=== PATIENT | male | born 1965 | race Caucasian/White ===

== ENCOUNTER 2024-05-19 21:59 | Emergency (ER) | payer BC, SELFPAY ==
[2024-05-19 22:00] VITALS: PULSE 68; RESP 16; TEMP 36.4; O2SAT 99; BMI 22.6
--- OUTSIDE RECORDS SUMMARY | 2024-05-19 22:01 | XMS_ITS | Clinical Summary ---
Author Organization [facility] Address [address] [place] [address] Care Team Providers Care Marketing Associate Name Role Phone Charles Jimenez MD Primary Care Provider Allergies Active Allergy Reactions Criticality Noted Date Comments Tamsulosin *Unknown - Pt Doesn't Remember 03/19 Medications rosuvastatin (CRESTOR) 40 mg tabletIndicatio ns:Hyperlipidem ia, mixed Take 1 Tablet (40 mg) by mouth at bedtime. 90 Tablet 3 03/25/2023 Active pramipexole (MIRAPEX) 0.125 mg tabletIndicatio ns:Restless leg syndrome TAKE 2-3 TABLETS (0.25-0.375 MG) BY MOUTH AT BEDTIME. 270 Tablet 1 08/25/2023 Active Active Problems Problem Noted Date Diagnosed Date Routine adult health maintenance 05/25/2023 Overview (05/25/2023): Colonoscopy, 05/22, recheck 6 months. Hyperlipidemia, mixed 03/19/2023 Smoking 03/19/2023 Lumbar disc disease, L5-S1 fusion, 202103/19/19 Restless leg syndrome 03/19/2023 Immunizations Immunization Administration Dates Next Due Hepatitis A (Adult) 08/15/2013 Hepatitis B (Adult) 05/26/2022,08/15/2013 Influenza Virus, Unspecified 12/01/2012,12/19/19 10 Influenza, IIV3 (Age >=3 years) 11/24/2011 Influenza, IIV4 12/10/2017 MMR 05/26/2022 Measles 07/13/1978 Pneumococcal Poly,23-Valent (Pneumovax) 08/16/19 14 Tdap 08/15/2013 Typhoid (injectable) 05/26/2022 Typhoid Parenteral,Killed 08/15/2013 Zoster (Shingrix-RZV, recombinant) 04/14/2019, Social History Tobacco Use Types Packs/Day Years Used Date Smoking Tobacco: Every Day Cigarettes 0.5 43.2 Started: 03/01/1981 Smokeless Tobacco: Never Tobacco Cessation:Ready to Q uit: Not Asked; Counseling Given: Not Answered Alcohol Use Standard Drinks/Week Comments Yes 0 (1 standard drink = 0.6 oz pur e alcohol) Very Rare PHQ-2 Answer Date Recorded PHQ-2 TOTAL SCORE 0 03/25/2023 Social Connections Answer Date Recorded Frequency of Communication with Friends and Fami ly Not on file 03/25/2023 Sex and Gender Information Value Date Recorded Sex Assigned at Not on file Legal Sex Male 5:45 AM FORKLIFT OPERATOR Gender Identity Not on file Sexual Orientation Not on file Obstetrics History Last Filed Vital Signs Vital Sign Reading Time Taken Comments Blood Pressure 138/74 03/25/2023 9:26 AM FORKLIFT OPERATOR Pulse 84 03/25/2023 9:26 AM FORKLIFT OPERATOR Temperature - - Respiratory Rate - - Oxygen Saturation - - Inhaled Oxygen Concentration - - Weight 65 kg (143 lb 3.2 oz) 03/25/2023 9:26 AM FORKLIFT OPERATOR Height 165.1 cm (5' 5) 03/25/2023 9:26 AM FORKLIFT OPERATOR Body Mass Index 23.83 03/25/2023 9:26 AM FORKLIFT OPERATOR Plan of Treatment Health Maintenance Due Date Last Done Comments HIV for age 15-65 1981 Hepatitis C screening for ag e 18-79 1984 Pneumococcal series for age 50+ (2 of 2 - PCV) 08/15/2014 08/15/[address] (for lung CA) ag e 50-80 2016 Tetanus booster 2023 08/15/2013 COVID-19 vaccine series ( - season) 2023 02/04/2021, 06/11/2020, 05/21/2020 Influenza Vaccine (#1) 2023 8, 12/01/2012, 11/24/2011, Additional history exists BMI (ht and wt on same day) for age 18+ 03/25/2024 03/25/2023 Depression screening for age 12+ 03/25/2024 03/25/2023, 03/25/2023, 03/25/2023 Lipids for age 45-75 03/25/2028 03/25/2023 Colonoscopy through age 75 05/19/2033 05/20/2023 Tdap Completed 08/15/2013 Zoster (shingles) series for age 50+ Completed 04/14/2019, 07/12/2017 Procedures Procedure Name Priority Date/Time Associated Diagnosis Comments SCAN-COLONOSCOPY 05/20/2023 10:0 0 AM CDT LIPID PANEL Routine 03/25/2023 10:03 AM FORKLIFT OPERATOR Hyperlipidemia, mixed from Last 3 Months or Most Recently Relevant to Health Maintenance Results * SCAN-COLONOSCOPY (05/20/2023 10:00 AM CDT) Narrative Procedure Note Maria GuadalupeBeto Cantu MD - 05/20/2023 9:16 AM CDT [facility] [address] [place] [address], [address], [place] [id number] Patient Name: Morgan Rodriguez Gender: Male Exam Date: 05/20/2023 Visit Number: [id number] Age: 57 Years Date of : 1965 Attending MD: Beto Royal MD Medical Record#: [id number] Procedure: Colonoscopy Indications: Colorectal cancer screening Referring MD: Charles Jimenez MD Primary MD: Charles Jimenez MD Medications: Admitting Medications: 0.9% Normal Saline at TKO Intra Procedure Medications: Patient received monitored anesthesia care. Admitting Medications: 0.9% Normal Saline at TKO Intra Procedure Medications: Patient received monitored anesthesia care. Complications: No immediate complications Procedure: An examination of the heart and lungs was performed and found to be withinacceptable limits. . The patient was therefore deemed a reasonablecandidate for endoscopy and sedation. The risks and benefits of the procedure were explained to the patient.After obtaining informed consent, the patient received monitoredanesthesia care and I passed the scope without difficulty via the rectum to the cecum. The appendiceal orificeand ic valve were identified. The scope was retroflexed during theexamination The quality of the prep was excellent (Miralax/Gatorade/2tablets Bisacodyl/Magnesium Citrate). This was a complete examination throughout the entire colon. Findings: Polyp location: ascending colon. Quantity: 2. Size: 3-4 mm. Polypshape: sessile. Maneuver: polypectomy was performed with a cold snare. Removal: complete. Retrieval: complete. Bleeding: none. Polyp location: hepatic flexure. Quantity: 1. Size: 11-15 mm. Polypshape: sessile. Maneuver: piecemeal polypectomy was performed with a cold snare andcold biopsy forceps. Removal: complete. Retrieval: complete. Bleeding: none. Polyp location: sigmoid. Quantity: 1. Size: 4 mm. Polyp shape:sessile. Maneuver: polypectomy was performed with a cold snare. Removal: complete. Retrieval: complete. Bleeding: none. Polyp location: rectum. Quantity: 1. Size: 4 mm. Polyp shape: sessile. Maneuver: polypectomy was performed with a cold snare. Removal: complete. Retrieval: complete. Bleeding: none. Polyp location: transverse colon. Quantity: 4. Size: 4-6mm. Polypshape: sessile. Maneuver: polypectomy was performed with a cold snare. Removal: complete. Retrieval: complete. Bleeding: none. Tattoo was placed 5cm distal to hepatic flexure on the opposite wall. Remainder of the exam is normal. Impression: Colorectal polyps impression comments: You will need to come back in 6 months to makesure the whole hepatic flexure polyp was removed as I did remove it inpieces due to the size. Preliminary Plan: Repeat colonoscopy in 6 months for colon cancer surveillance Pathology Results: A: COLON, ASCENDING, POLYPS: 1. Tubular adenomas (2) 2. Negative for high grade dysplasia 3. Per the colonoscopy report: a. Polyp sizes: 3 mm - 4 mm b. Resection: Complete c. Retrieval: Complete B: COLON, HEPATIC FLEXURE, POLYP: 1. Tubular adenoma which is an advanced adenoma due to size (seecomment) 2. Negative for high grade dysplasia and invasive malignancy 3. Per the colonoscopy report: a. Polyp size: 11-15 mm b. Resection: Complete c. Retrieval: Complete C: COLON, TRANSVERSE, POLYPS: 1. Tubular adenomas (4) 2. Negative for high grade dysplasia 3. Per the colonoscopy report: a. Polyp sizes: 4 mm - 6 mm b. Resection: Complete c. Retrieval: Complete D: COLON, SIGMOID, POLYP: 1. Tubular adenoma 2. Negative for high grade dysplasia 3. Per the colonoscopy report: a. Polyp size: 4 mm b. Resection: Complete c. Retrieval: Complete E: RECTUM, POLYP: 1. Hyperplastic polyp COMMENTS B. Advanced adenoma of the colorectum is defined by the [place] [employer] (ACG) as an adenoma that is 1 cm or more in size,contains an appreciable villous component, or has high grade dysplasia(Zackery JH; Polyp Guideline: Diagnosis, Treatment, and Surveillance forPatients with Colorectal Polyps. Am J Goshcyvooadlh4405;95(11):3633-0588). This polyp qualifies as such. Patients withadvanced adenomas are at increased risk for synchronous and metachronousadditional advanced adenomas. Appropriate follow-up is suggested. MICROSCOPIC A: Performed B: Performed C: Performed D: Performed E: Performed Electronically signed by: Guillermo Levi [place] [address] Orders Instruction(s)/Education: Instruction/Education Timeframe Assessment Colon Cancer Prevention K63.5 Colon Polyps K63.5 Final Plan: Repeat colonoscopy in 6 months for Assess polypectomy site. We will attempt to contact you at appropriate intervals via U.S. mail. Wemay not be able to find you or contact you at that time, therefore youshould know that the responsibility for following our recommendation restswith you. If you don't hear from us at the time your procedure is due,please contact our office to schedule an appointment. If your contactinformation should change, please contact our office so that we can updateyour record. _Electronically signed by: Beto Royal MD 05/20/2023 cc: Charles Jimenez MD cc: Charles Jimenez MD us Beto Lerma MD OTHER Final Resu lt * (ABNORMAL) LIPID PANEL (03/25/2023 10:03 AM FORKLIFT OPERATOR) [facility] CHOLESTEROL,TOTAL 272(H) 100 - 199 mg/dL 03/25/2023 2:22 PM FORKLIFT OPERATOR [facility] Comment: Cholesterol, Total Reference Ranges Desirable <200 mg/dL Borderline 200-239 mg/dL High >=240 mg/dL TRIGLYCERIDES 149 <150 mg/dL 03/25/2023 2:22 PM FORKLIFT OPERATOR [facility] HDL CHOLESTEROL 51 >40 mg/dL 2:22 PM FORKLIFT OPERATOR [facility] NON-HDL CHOLESTEROL 221(H) <145 mg/dl 03/25/2023 2:22 PM FORKLIFT OPERATOR [facility] CHOL/HDL RATIO 5.33(H) <4.50 03/25/2023 2:22 PM FORKLIFT OPERATOR [facility] LDL CHOLESTEROL 191(H) <=130 mg/dL 03/25/2023 2:22 PM FORKLIFT OPERATOR [facility] VLDL CHOLESTEROL 30 <=30 mg/dL 03/25/2023 2:22 PM FORKLIFT OPERATOR [facility] PROVIDER ORDERED STATUS RANDOM 03/25/2023 2:22 PM FORKLIFT OPERATOR [facility] Blood BLOOD SPECIMEN / Unknown Venipuncture / Unknown 03/25/2023 10:03 AM FORKLIFT OPERATOR 03/25/2023 10:03 AM FORKLIFT OPERATOR us Charles Jimenez MD CHEMISTRY Final Result [facility] [address] [place] [address], [place] from Last 3 Months or Most Recently Relevant to Health Maintenance Insurance [facility] [employer] Care Teams Marketing Associate Relationship Specialty [place] [address] [place] [address] PCP - General Family Practice 03/25/23
--- OUTSIDE RECORDS SUMMARY | 2024-05-19 22:01 | XMS_ITS | Clinical Summary ---
Author Organization [facility] Address [address] [place] [address] Care Team Providers Care Leather Stripping Machine Operator Name Role Phone Priya Cameron APRN, CNP Primary Care Provide r Allergies No known active allergies Medications pramipexole (MIRAPEX) 0.125 MG tablet Take 0.375 mg by mouth At Bedtime 09/16/2020 Active methocarbamol (ROBAXIN) 500 MG tabletIndicatio ns:S/P lumbar fusion Take 1 tablet (500 mg) by mouth 3 times daily as needed for muscle spasms 40 tablet 1 03/13/2021 Active neomycin-polymy peng-hydrocortis one (CORTISPORIN) 3.5-96089-8 otic suspensionIndic ations:Infectiv e otitis externa, left Place 3 drops Into the left ear 4 times daily 10 mL 08/02/2022 Active Active Problems Problem Noted Date Diagnosed Date Smoker 08/02/2022 S/P lumbar fusion 03/13/2021 Social History Tobacco Use Types Packs/Day Years Used Date Smoking Tobacco: Every Day Cigarettes 0.5 10 Smokeless Tobacco: Never Alcohol Use Standard Drinks/Week Comments Yes 0 (1 standard drink = 0.6 oz pur e alcohol) rare Adolescent Education Answer Date Record ed Getting School Help Needed Not on file 11/21 Sex and Gender Information Value Date Recorded Sex Assigned at Not on file Legal Sex Male 12:29 PM BOARD MIXER TENDER Gender Identity Not on file Sexual Orientation Not on file Last Filed Vital Signs Vital Sign Reading Time Taken Comments Blood Pressure 134/86 08/02/2022 10:52 AM CDT Pulse 64 08/02/2022 10:52 AM CDT Temperature 36.5 C (97.7 F) 08/02/2022 10:52 AM CDT Respiratory Rate 18 08/02/2022 10:52 AM CDT Oxygen Saturation 99% 08/02/2022 10:52 AM CDT Inhaled Oxygen Concentration - - Weight 66.4 kg (146 lb 4.8 oz) 03/13/2021 11:14 AM BOARD MIXER TENDER Height 167.6 cm (5' 6) 03/13/2021 11:14 AM BOARD MIXER TENDER Body Mass Index 23.61 03/13/2021 11:14 AM BOARD MIXER TENDER Plan of Treatment Health Maintenance Due Date Last Done Comments ADVANCE CARE PLANNING 1965 ANNUAL REVIEW OF HM ORDERS 1965 CT COLONOGRAPHY 1965 FIT 1965 FLEX SIG 1965 COLONOSCOPY 1976 HIV SCREENING 1981 HEPATITIS C SCREENING 1984 LIPID 2006 Pneumococcal Vaccine: 50+ Years (2 of 2 - PCV) 08/15/2014 08/15/2013 LUNG CANCER SCREENING 2016 YEARLY PREVENTIVE VISIT 07/12/2018 07/12/2017 HEPATITIS B IMMUNIZATION (3 of 3 - 19+ 3-dose series) 07/21/2022 05/26/2022, 08/15/2013, 08/15/2013 DTAP/TDAP/TD IMMUNIZATION (2 - Td or Tdap) 2023 08/15/2013, 10/02/2002 COVID-19 Vaccine ( season) 2023 02/04/2021, 06/11/2020, 05/21/2020 INFLUENZA VACCINE (#1) 2023 8, 12/01/2012, 11/24/2011, Additional history exists COLORECTAL CANCER SCREENING 01/29/2024 sDNA (Cologuard) 01/29/2024 01/28/2021 PHQ-2 (once per calendar year) 2024 DIABETES SCREENING 03/14/2024 03/14/2021, 0 03/14/2021, 03/14/2021, Additional history exists RSV VACCINE (1 - 1-dose 75+ series) 2041 ZOSTER IMMUNIZATION Completed 04/14/2019, 8 HPV IMMUNIZATION Aged Out No longer e ligible based on patient's age to complete this topic MENINGITIS IMMUNIZATION Aged Out No l onger eligible based on patient's age to complete this topic RSV MONOCLONAL ANTIBODY Aged Out No l onger eligible based on patient's age to complete this topic Medical Devices Implanted Type Area Youth Director Device Identifier Shelf Expiration Date Model / Serial / Lot Carriere Dbf With Delivery Tubes Implanted:Qty: 1 on 03/13/2021 by Jose Luis Coto MD at [facility] N/A: Spine Lumbar [employer] 07/12/2022 [id number] / [id number] / Pete Dbf Inject Implanted:Qty: 1 on 03/13/2021 by Jose Luis Coto MD at [facility] N/A: Spine Lumbar [employer] 01/30/2023 [id number] / [id number] / Interbody Cage, Pl, Short Size 7mm Implanted:Qty: 1 on 03/13/2021 by Jose Luis Coto MD at [facility] N/A: Spine Lumbar 01/15/2029 [id number] / / [id number] 7.5 X 40 Voyager Ats Screw Implanted:Qty: 2 on 03/13/2021 by Jose Luis Coto MD at [facility] N/A: Spine Lumbar [employer] [id number] / / [id number] 7.5 X 35 Voyager Ats Screw Implanted:Qty: 2 on 03/13/2021 by Jose Luis Coto MD at [facility] N/A: Spine Lumbar [employer] [id number] / / [id number] Voyager Set Screw Implanted:Qty: 4 on 03/13/2021 by Jose Luis Coto MD at [facility] N/A: Spine Lumbar [employer] [id number] / / [id number] 35mm Capped Joel Implanted:Qty: 1 on 03/13/2021 by Jose Luis Coto MD at [facility] N/A: Spine Lumbar [employer] [id number] / / [id number] Procedures Procedure Name Priority Date/Time Associated Diagnosis Comments GLUCOSE BY METER Routine 03/14/2021 1:48 AM BOARD MIXER TENDER from Last 3 Months or Most Recently Relevant to Health Maintenance Results * (ABNORMAL) Glucose by meter (03/14/2021 1:48 AM BOARD MIXER TENDER) GLUCOSE BY METER POCT 126(H) 70 - 99 mg/dL 03/14/2021 1:55 AM BOARD MIXER TENDER LABORATORY POC Comment:Dr/RN Notified Blood BLOOD SPECIMEN / Unknown 03/14/2021 1:48 AM BOARD MIXER TENDER 03/14/2021 1:55 AM BOARD MIXER TENDER Jose Luis Coto MD LAB - BEAKER POCT Fi nal Result LABORATORY POC [facility] [address] [facility] (1st floor, no room number) [place] [address], [facility] [phone] from Last 3 Months or Most Recently Relevant to Health Maintenance Insurance BLUE PLUS Advance Directives For more information, please contact: [phone] * Full Code (Latest Code Status on File) Date Activated Date Inactivated Comments 03/13/2021 7:29 PM 03/14/2021 7:13 PM All basic an d advanced life-sustaining interventions are performed as appropriate Question Answer Comments Code status determined by: Discussion with patie nt/ legal decision maker Care Teams Leather Stripping Machine Operator Relationship Specialty Start Date End Date Priya Cameron, LUCIO APPLICATION SUPPORT ADMINISTRATOR [address] [address] PCP - General Internal Medicine 03/03/21
--- NOTE | 2024-05-19 22:11 | CRLHL7_ITS ---
For Patients: As a result of the Century Cures Act, medical imaging exams and procedure reports are released immediately into your electronic medical record. You may view this report before your referring provider. If you have questions, please contact your health care provider. INDICATION: Left lower quadrant abdominal pain. TECHNIQUE: CT abdomen and pelvis without contrast. COMPARISON: None. FINDINGS: Lower chest: Unremarkable. Liver: Unremarkable. Gallbladder and bile ducts: Unremarkable. Pancreas: Unremarkable. Spleen: Unremarkable. Adrenal glands: Unremarkable. Kidneys: Mild left-sided hydronephrosis and hydroureter leading to a 3 mm left distal ureteral calculus (series 2, image 107). Mild left-sided perinephric stranding is evident. Additional nonobstructing bilateral renal calculi are noted measuring 2 mm. No right-sided hydronephrosis or hydroureter. GI tract: No bowel obstruction. Scattered submucosal fat deposition, likely reflecting sequelae of chronic inflammatory process. Scattered colonic diverticulosis without acute diverticulitis. No CT evidence of acute appendicitis. Vasculature: Atherosclerotic vascular calcifications. No abdominal aortic aneurysm. Lymph nodes: No suspicious lymphadenopathy. Peritoneum/Abdominal Wall: No ascites or pneumoperitoneum. No acute abdominal wall abnormality. Pelvis: Normal bladder. Unremarkable prostate and seminal vesicles. Bones: No acute abnormality. Multilevel chronic appearing superior endplate vertebral body deformities. Operative changes of L5-S1 posterior and interbody arthrodesis. IMPRESSION: 1. Left distal ureteral calculus measuring 3 mm with mild associated hydroureteronephrosis. 2. Additional nonobstructing bilateral renal calculi measuring up to 2 mm. 3. Scattered colonic diverticulosis without acute diverticulitis. Please note that all CT scans at this facility use dose modulation, iterative reconstruction, and/or weight-based dosing when appropriate to reduce radiation dose to as low as reasonably achievable. Dictated by Iron Rosenbaum MD @ 05/19/2024 10:50:08 PM (Electronically Signed)
--- NOTE | 2024-05-19 22:14 | ED_ITS ---
HPI - General Adult General Date Seen: 05/19/24 Chief complaint: Back Injury/Pain Stated complaint: Back pain, vomiting Time Seen by Provider: 05/19/24 22:05 History of Present Illness HPI narrative: Patient is a 58-year-old male with a history of back pain, status post spinal surgery few years ago and chronic pain since then, who presents with sudden onset of more severe left lower back pain and left lower quadrant pain. He does note that he often has pain in these areas related to his back surgery, but this feels different, feels more internal, he has the sense that this is related to a ?blockage. He did try a suppository for constipation without results. He noted diarrhea this morning, nonbloody. He has had a couple episodes of clear emesis tonight. He has not had fevers or urinary symptoms. Denies history of kidney stones. Does not have any other medical history per his report. We have no previous records. Does not appear to be on chronic pain management, and his says that he does have pain all the time but tonight is different. He does smoke, denies alcohol or drug use. Denies other abdominal surgeries. Related Data Previous Rx's ?Medication ?Instructions ?Recorded tamsulosin 0.4 mg capsule (Flomax) 0.4 mg PO DAILY #10 caps 05/19/24 Allergies Allergy/AdvReac Type Severity Reaction Status Date / Time No Known Drug Allergies Allergy Verified 05/19/24 22:05 Review of Systems Status of ROS: Reports: 10 or more systems reviewed and unremarkable except as noted in History and below [facility] Social History Smoking Status: Never smoker Do you use any of these nicotine containing products: None How often do you have a drink containing alcohol: never How often do you have six or more drinks on one occasion: Never AUDIT-C Alcohol total score: 0 Non-prescribed substance use: denies use service: No Exam Narrative: Exam Narrative: Vital signs reviewed In general, alert, nontoxic mid age male. He looks uncomfortable. Head: Normocephalic, atraumatic. Eyes: Sclera clear. Pupils equal and reactive. ENT: Mucous membranes moist. Neck: Supple without adenopathy. Heart: Regular rate and rhythm without murmur. Lungs: Clear. No increased work of breathing, crackles or wheezes. Abdomen: Abdomen is soft, nondistended. He has a little bit of left lower quadrant tenderness, no guarding rigidity or rebound tenderness. Extremities: Well perfused, pulses intact. No significant edema. Neurologic: Alert, conversant. Speech fluent, face symmetric. Moves all extremities equally. Skin: Warm, dry well perfused. Affect: Normal. Const: Vital Signs, click to edit/add: Vital Signs - 24 hr 05/19/24 22:00 Temperature 97.6 F Pulse Rate [Pulse Oximeter] 68 Respiratory Rate 16 Pulse Oximetry 99 Oxygen Delivery Me thod Room Air Course Course ED Course: Will place an IV, give some normal saline, Zofran, start with Toradol. I have ordered a noncontrast CT in lower evaluate for possible kidney stone, other diagnostic considerations would be bowel obstruction, diverticulitis, colitis, volvulus or other obstruction, incarcerated hernia,, among others. Routine labs pending. CBC notable for an elevated white blood cell count of 16, mild left shift with 77% neutrophils. Metabolic panel is pending, UA shows 0-2 red cells 0-[address] scan of the abdomen and pelvis by my review shows about a 3 mm stone in the distal left ureter with associated hydronephrosis. Radiology read pending at this time. I have ordered morphine for additional pain control. Radiology read agrees. Results discussed with patient. I prescribed Zofran as well as oxycodone for pain and nausea. Ibuprofen 400 mg 3 times daily recommended for baseline pain control. I also gave him Flomax. Discussed that this size stone would be expected to pass on its own over the next few days but if he feels that he does not pass it over the next week, would recommend Urology follow-up. Return any time for severe uncontrolled pain, fevers, chills, or other worsening. Vital Signs Vital signs: Initial Vital Signs Temperature 97.6 F 05/19/24 22:00 Temperature Source Temporal Artery Scan 05/19/24 22:00 Pulse Rate 68 05/19/24 22:00 Respiratory Rate 16 05/19/24 22:00 Pulse Oximetry 99 05/19/24 22:00 Oxygen Delivery Method Room Air 05/19/24 22:00 Vital Signs Temperature 97.6 F 05/19/24 22:00 Pulse Rate 68 05/19/24 22:00 Respiratory Rate 16 05/19/24 22:00 Pulse Oximetry 99 05/19/24 22:00 Oxygen Delivery Method Room Air 05/19/24 22:00 Temperature 98.1 F 05/19/24 23:04 Pulse Rate 68 05/19/24 23:04 Respiratory Rate 16 05/19/24 23:04 Blood Pressure 119/79 05/19/24 23:04 Pulse Oximetry 98 05/19/24 23:04 Oxygen Delivery Method Room Air 05/19/24 23:04 Medications Administered Medications: Discontinued Medications Generic Name Dose Route Start Last Admin Trade Name Freq PRN Reason Stop Dose Admin Sodium Chloride 1,000 mls @ 1,000 mls/hr 05/19/24 22:15 05/19/24 23:21 0.9 % Sodium Chloride 1000 Ml IV 05/19/24 23:14 Infused .Q1H ELLE Infusion Ceftriaxone Sodium 1 gm/ 100 mls @ 200 mls/hr 05/19/24 23:11 05/19/24 23:34 Sodium Chloride IVPB 05/19/24 23:12 Infused ONCE ONE Infusion Ketorolac Tromethamine 15 mg 05/19/24 22:11 05/19/24 22:25 Ketorolac 15 Mg/Ml Inj IVP 05/19/24 22:12 15 mg ONCE ONE Administration Morphine Sulfate 4 mg 05/19/24 22:46 05/19/24 22:51 Morphine 4 Mg/Ml Inj IVP 05/19/24 22:47 4 mg ONCE ONE Administration Ondansetron HCl 4 mg 05/19/24 22:11 05/19/24 22:25 Ondansetron Odt 4 Mg Tab PO 05/19/24 22:12 4 mg ONCE ONE Administration Medical Decision Making Lab Data Lab results reviewed: Yes I reviewed the patient's lab results Labs: Lab Results 05/19/24 Range/Units 22:15 WBC 15.94 H (4.50-11.00) K/uL RBC 5.31 (4.30-5.90) m/uL Hgb 16.7 (13.5-17.5) gm/dL Hct 48.9 (37.0-53.0) % MCV 92 (80-100) fL MCH 32 (26-34) pg MCHC 34 (32-36) gm/dL RDW Coeff of Disha 12.2 (11.5-15.5) % Plt Count 196 (140-440) K/uL Neut % (Auto) 77.0 H (42.0-72.0) % Lymph % (Auto) 12.5 L (20-44) % [place] % (Auto) 8.2 (0.0-11.0) % Eos % (Auto) 0.6 (0.0-7.0) % Baso % (Auto) 0.3 (0.0-3.0) % Neut # (Auto) 12.30 H (1.7-7.0) K/uL Lymph # (Auto) 2.00 (0.90-2.90) K/uL [place] # (Auto) 1.30 H (0.00-0.90) K/UL Eos # (Auto) 0.10 (0.00-0.50) K/uL Baso # (Auto) 0.00 (0.00-0.30) K/uL Abs Immat Gran (auto) 0.20 (0.00-0.30) K/uL Imm/Tot Granulo (auto) 1.4 % Sodium 140 (135-149) mmol/L Potassium 4.0 (3.6-5.1) mmol/L Chloride 104 (96-114) mmol/L Carbon Dioxide 23 (20-32) mmol/L Anion Gap 13 (7-15) mEq/L BUN 23 (7-30) mg/dL Creatinine 1.4 (0.5-1.5) mg/dL Estimated Creat Clear 52.29 Estimated GFR 59 ml/min Glucose 110 (60-115) mg/dL Calcium 9.4 (8.4-10.6) mg/dL C-Reactive Protein < 0.5 L (0.5-1.0) mg/dL Urine Color Yellow (Yellow) Urine Appearance Clear (Clear) Urine pH 5.5 (5.0-8.5) Ur Specific [place] >= 1.030 (1.000-1.030) Urine Protein 2+ A (Negative) Urine Glucose (UA) Negative (Negative) Urine Ketones 1+ A (Negative) Urine Blood Trace-lysed A (Negative) Urine Nitrite Negative (Negative) Urine Bilirubin 1+ A (Negative) Urine Urobilinogen 0.2 (0.2-1.0) Ur Leukocyte Esterase Negative (Negative) Urine RBC 0-2 (0-2) Urine WBC 0-2 (0-5) Ur Squamous Epith Cells None (None-Few) Amorphous Sediment Few A (None) Urine Bacteria None (None) Imaging Data CT scan - abdomen: Attestation: I have reviewed the pertinent imaging results. Radiologist's impression: [place] [address] Diagnostic Imaging Report Patient: Morgan Rodriguez MR#: [id number] : 1965 Acct:[id number] Loc: ED Service Date: 05/19/[address]: Ordering Physician: Leslie Dickson M.D. Date of Service: 05/19/24 Procedure(s): CT abdomen pelvis wo con Accession Number(s): [id number] cc: Leslie Dickson M.D.~ For Patients: As a result of the Cures Act, medical imaging exams and procedure reports are released immediately into your electronic medical record. You may view this report before your referring provider. If you have questions, please contact your health care provider. INDICATION: Left lower quadrant abdominal pain. TECHNIQUE: CT abdomen and pelvis without contrast. COMPARISON: None. FINDINGS: Lower chest: Unremarkable. Liver: Unremarkable. Gallbladder and bile ducts: Unremarkable. Pancreas: Unremarkable. Spleen: Unremarkable. Adrenal glands: Unremarkable. Kidneys: Mild left-sided hydronephrosis and hydroureter leading to a 3 mm left distal ureteral calculus (series 2, image 107). Mild left-sided perinephric stranding is evident. Additional nonobstructing bilateral renal calculi are noted measuring 2 mm. No right-sided hydronephrosis or hydroureter. GI tract: No bowel obstruction. Scattered submucosal fat deposition, likely reflecting sequelae of chronic inflammatory process. Scattered colonic diverticulosis without acute diverticulitis. No CT evidence of acute appendicitis. Vasculature: Atherosclerotic vascular calcifications. No abdominal aortic aneurysm. Lymph nodes: No suspicious lymphadenopathy. Peritoneum/Abdominal Wall: No ascites or pneumoperitoneum. No acute abdominal wall abnormality. Pelvis: Normal bladder. Unremarkable prostate and seminal vesicles. Bones: No acute abnormality. Multilevel chronic appearing superior endplate vertebral body deformities. Operative changes of L5-S1 posterior and interbody arthrodesis. IMPRESSION: 1. Left distal ureteral calculus measuring 3 mm with mild associated hydroureteronephrosis. 2. Additional nonobstructing bilateral renal calculi measuring up to 2 mm. 3. Scattered colonic diverticulosis without acute diverticulitis. Please note that all CT scans at this facility use dose modulation, iterative reconstruction, and/or weight-based dosing when appropriate to reduce radiation dose to as low as reasonably achievable. Dictated by Iron Rosenbaum MD @ 05/19/2024 10:50:08 PM Discharge Plan Discharge Clinical Impression: Calculus of distal left ureter Patient Disposition: Home, Self-Care Condition: Improved Instructions: How to Strain Your Urine (ED), Ureteral Stones (ED) Additional Instructions: You should push fluids over the next couple of days as this can help with pa ssage of kidney stones. Strain your urine. Your stone is 3 mm in size, and stones this size usually pass on their own within a few days to week. If after week you do not feel that you have passed the stone, I would recommend neurology follow-up. You can call [facility], if you need to follow- up. In the meantime, ibuprofen 400 mg 3 times daily with food as baseline pain control. Oxycodone as needed for uncontrolled pain. Zofran if needed for nausea or vomiting. Flomax may be helpful with passage of your stone. Return to the ER at any time for severe uncontrolled pain, fevers, chills, uncontrolled vomiting or other worsening. Prescriptions: New tamsulosin [Flomax] 0.4 mg capsule 0.4 mg PO DAILY Qty: 10 2RF Stand Alone Forms: [employer] Info Instructions
[2024-05-19] MEDS: 0.9 % SODIUM CHLORIDE 1000 ml 1,000 ML IV (22:24)
[2024-05-19] MEDS: KETOROLAC 15 MG/ML inj IVP (22:25)
[2024-05-19] MEDS: ONDANSETRON ODT 4 MG TAB PO (22:25)
[2024-05-19 22:30] LABS: Basophils Percent Auto 0.3 % (0.0-3.0); Eosinophils Percent Auto 0.6 % (0.0-7.0); Hematocrit 48.9 % (37.0-53.0); Hemoglobin* 16.7 gm/dL (13.5-17.5); Immature Granulocytes Pct Auto 1.4 %; Lymphocytes Percent Auto 12.5 % (20-44); Mean Corpuscular HGB Conc 34 gm/dL (32-36); Mean Corpuscular Hemoglobin 32 pg (26-34); Mean Corpuscular Volume 92 fL (80-100); Monocytes Percent Auto 8.2 % (0.0-11.0); Platelet Count* 196 K/uL (140-440); RDW Coefficient of Variation % 12.2 % (11.5-15.5); Red Blood Count 5.31 m/uL (4.30-5.90); White Blood Count* 15.94 K/uL (4.50-11.00)
[2024-05-19 22:31] LABS: Appearance Urine Clear (Clear); Bilirubin Urine 1+ (Negative); Blood Urine Trace-lysed (Negative); Color Urine Yellow (Yellow); Glucose Urine Negative (Negative); Ketones Urine 1+ (Negative); Leukocyte Esterase Urine Negative (Negative); Nitrite Urine Negative (Negative); Protein Urine 2+ (Negative); Specific Gravity Urine >= 1.030 (1.000-1.030); Urobilinogen Urine 0.2 (0.2-1.0); pH Urine 5.5 (5.0-8.5)
[2024-05-19 22:32] LABS: Slide Review Reflex No
[2024-05-19 22:43] LABS: Amorphous Sediment Urine Few; RBC Urine 0-2 (0-2); WBC Urine 0-2 (0-5)
[2024-05-19 22:51] LABS: Chloride* 104 mmol/L (96-114); Sodium* 140 mmol/L (135-149)
[2024-05-19] MEDS: MORPHINE 4 MG/ML INJ IVP (22:51)
[2024-05-19 22:55] LABS: Anion Gap 13 mEq/L (7-15); Blood Urea Nitrogen* 23 mg/dL (7-30); Calcium* 9.4 mg/dL (8.4-10.6); Carbon Dioxide* 23 mmol/L (20-32); Creatinine* 1.4 mg/dL (0.5-1.5); Est. Creatinine Clearance* 52.29; Estimated Glomerular Filt Rate 59 ml/min; Glucose* 110 mg/dL (60-115)
[2024-05-19 22:59] LABS: C Reactive Protein* < 0.5 mg/dL (0.5-1.0)
[2024-05-19 23:04] VITALS: BP 119/79; PULSE 68; RESP 16; TEMP 36.7; O2SAT 98
[2024-05-19] MEDS: cefTRIAXone 1 GM in 0.9 % SODIUM CHLORIDE Mini-bag 100 ML IVPB (23:16)
--- OUTSIDE RECORDS SUMMARY | 2024-05-19 23:18 | XMS_ITS | Clinical Summary ---
Author Organization [facility] Address [address] [place] [id number] Care Team Providers Care Placement Assistant Name Role Phone Charles Jimenez MD Primary [...] on file Legal Sex Male 5:45 AM NURSING EDUCATION SPECIALIST Gender Identity Not on file Sexual Orientation Not on file Obstetrics History Last Filed Vital Signs Vital Sign Reading Time Taken Comments Blood Pressure 138/74 03/25/2023 9:26 AM NURSING EDUCATION SPECIALIST Pulse 84 03/25/2023 9:26 AM NURSING EDUCATION SPECIALIST Temperature - - Respiratory Rate - - Oxygen Saturation - - Inhaled Oxygen Concentration - - Weight 65 kg (143 lb 3.2 oz) 03/25/2023 9:26 AM NURSING EDUCATION SPECIALIST Height 165.1 cm (5' 5) 03/25/2023 9:26 AM NURSING EDUCATION SPECIALIST Body Mass Index 23.83 03/25/2023 9:26 AM NURSING EDUCATION SPECIALIST Plan of Treatment Health Maintenance Due Date [...] CDT LIPID PANEL Routine 03/25/2023 10:03 AM NURSING EDUCATION SPECIALIST Hyperlipidemia, mixed from Last 3 Months or Most Recently Relevant to Health Maintenance Results * SCAN-COLONOSCOPY (05/20/2023 10:00 AM CDT) Narrative Procedure Note Maria GuadalupeBeto Cantu MD - 05/20/2023 9:16 AM CDT [facility] [address] [place] [address], [address], [place] [id number] Patient Name: Morgan Rodriguez Gender: Male Exam Date: 05/20/2023 Visit Number: [id number] Age: 57 Years Date of : 1965 Attending MD: Beto Royal MD Medical Record#: [id number] Procedure: Colonoscopy Indications: Colorectal cancer screening Referring [...] of the colorectum is defined by the [employer] (ACG) as an adenoma that is 1 cm or more in size,contains an appreciable villous component, or has high grade dysplasia(Zackery JH; Polyp Guideline: Diagnosis, Treatment, and Surveillance forPatients with Colorectal Polyps. Am J [id number];95(11):2404-3647). This polyp qualifies as such. Patients withadvanced adenomas are at increased risk for synchronous and metachronousadditional advanced adenomas. Appropriate follow-up is suggested. MICROSCOPIC A: Performed B: Performed C: Performed D: Performed E: Performed Electronically signed by: Guillermo Levi [place] [address] Orders Instruction(s)/Education: Instruction/Education Timeframe Assessment Colon Cancer [...] * (ABNORMAL) LIPID PANEL (03/25/2023 10:03 AM NURSING EDUCATION SPECIALIST) [facility] CHOLESTEROL,TOTAL 272(H) 100 - 199 mg/dL 03/25/2023 2:22 PM NURSING EDUCATION SPECIALIST [facility] Comment: Cholesterol, Total Reference Ranges Desirable <200 mg/dL Borderline 200-239 mg/dL High >=240 mg/dL TRIGLYCERIDES 149 <150 mg/dL 03/25/2023 2:22 PM NURSING EDUCATION SPECIALIST [facility] HDL CHOLESTEROL 51 >40 mg/dL 2:22 PM NURSING EDUCATION SPECIALIST [facility] NON-HDL CHOLESTEROL 221(H) <145 mg/dl 03/25/2023 2:22 PM NURSING EDUCATION SPECIALIST [facility] CHOL/HDL RATIO 5.33(H) <4.50 03/25/2023 2:22 PM NURSING EDUCATION SPECIALIST [facility] LDL CHOLESTEROL 191(H) <=130 mg/dL 03/25/2023 2:22 PM NURSING EDUCATION SPECIALIST [facility] VLDL CHOLESTEROL 30 <=30 mg/dL 03/25/2023 2:22 PM NURSING EDUCATION SPECIALIST [facility] PROVIDER ORDERED STATUS RANDOM 03/25/2023 2:22 PM NURSING EDUCATION SPECIALIST [facility] Blood BLOOD SPECIMEN / Unknown Venipuncture / Unknown 03/25/2023 10:03 AM NURSING EDUCATION SPECIALIST 03/25/2023 10:03 AM NURSING EDUCATION SPECIALIST us Charles Jimenez MD CHEMISTRY Final Result [facility] [address] [place] [address], [place] from Last 3 Months or Most Recently Relevant to Health Maintenance Insurance [facility] [employer] Care Teams Placement Assistant Relationship Specialty [place] [address] [place] [address] PCP - General Family Practice 03/25/23
--- OUTSIDE RECORDS SUMMARY | 2024-05-19 23:19 | XMS_ITS | Clinical Summary ---
Author Organization [facility] Address [address] [place] [address] Care Team Providers Care Physician Coder Name Role Phone Priya Cameron APRN, CNP Primary Care Provide r Allergies No known active allergies Medications pramipexole (MIRAPEX) 0.125 MG tablet Take 0.375 mg by mouth At Bedtime 09/16/2020 Active methocarbamol (ROBAXIN) 500 MG tabletIndicatio ns:S/P lumbar fusion Take 1 tablet (500 mg) by mouth 3 times daily as needed for muscle spasms 40 tablet 1 03/13/2021 Active neomycin-polymy peng-hydrocortis one (CORTISPORIN) 3.5-70441-0 otic suspensionIndic ations:Infectiv e otitis externa, left [...] on file Legal Sex Male 12:29 PM WIRE INSERTER Gender Identity Not on file Sexual Orientation [...] (146 lb 4.8 oz) 03/13/2021 11:14 AM WIRE INSERTER Height 167.6 cm (5' 6) 03/13/2021 11:14 AM WIRE INSERTER Body Mass Index 23.61 03/13/2021 11:14 AM WIRE INSERTER Plan of Treatment Health Maintenance Due Date [...] this topic Medical Devices Implanted Type Area Outreach Specialist Device Identifier Shelf Expiration Date Model / Serial / Lot [place] Dbf With Delivery Tubes Implanted:Qty: 1 on 03/13/2021 by Jose Luis Coto MD at [facility] N/A: Spine Lumbar [employer] 07/12/2022 [id number] / [id number] / Pete Dbf Inject Implanted:Qty: 1 on 03/13/2021 by Jose Luis Coto MD at [facility] N/A: Spine Lumbar [employer] 01/30/2023 [id number] / [id number] / Interbody Cage, Pl, Short Size 7mm Implanted:Qty: 1 on 03/13/2021 by Jose Luis Coto MD at [facility] N/A: Spine Lumbar 01/15/2029 [id number] / / [id number] 7.5 X 40 Voyager Ats Screw Implanted:Qty: 2 on 03/13/2021 by Jose Luis Coto MD at [facility] N/A: Spine Lumbar [employer] [id number] / / [id number] 7.5 X 35 Voyager Ats Screw Implanted:Qty: 2 on 03/13/2021 by Jose Luis Coto MD at [facility] N/A: Spine Lumbar [employer] [id number] / / [id number] Voyager Set Screw Implanted:Qty: 4 on 03/13/2021 by Jose Luis Coto MD at [facility] N/A: Spine Lumbar [employer] [id number] / / [id number] 35mm Capped Joel Implanted:Qty: 1 on 03/13/2021 by Jose Luis Coto MD at [facility] N/A: Spine Lumbar [employer] [id number] / / [id number] Procedures Procedure Name Priority Date/Time Associated Diagnosis Comments GLUCOSE BY METER Routine 03/14/2021 1:48 AM WIRE INSERTER from Last 3 Months or Most Recently Relevant to Health Maintenance Results * (ABNORMAL) Glucose by meter (03/14/2021 1:48 AM WIRE INSERTER) GLUCOSE BY METER POCT 126(H) 70 - 99 mg/dL 03/14/2021 1:55 AM WIRE INSERTER LABORATORY POC Comment:Dr/RN Notified Blood BLOOD SPECIMEN / Unknown 03/14/2021 1:48 AM WIRE INSERTER 03/14/2021 1:55 AM WIRE INSERTER Jose Luis Coto MD LAB - BEAKER POCT Fi nal Result LABORATORY POC [facility] [address] [facility] (1st floor, no room number) [place] [address], [facility] [phone] from Last 3 Months or Most Recently Relevant to Health Maintenance Insurance BLUE PLUS Advance Directives For more information, please contact: [phone] * Full Code (Latest Code Status on File) Date Activated Date Inactivated Comments 03/13/2021 7:29 PM 03/14/2021 7:13 PM All basic an d advanced life-sustaining interventions are performed as appropriate Question Answer Comments Code status determined by: Discussion with patie nt/ legal decision maker Care Teams Physician Coder Relationship Specialty Start Date End Date Priya Cameron, LUC[employer] [address] [address] PCP - General Internal Medicine 03/03/21
== END 2024-05-20 00:18 | disposition home or self-care (01) ==
PROVIDERS: Emergency Provider Emergency Medicine
DX: N20.1 Calculus of ureter (principal)
CPT/HCPCS: 36415; 74176; 80048; 81001; 85025; 86140; 96365; 96375; 99284; A9270; J0696; J1885; J2270; J7030

== ENCOUNTER 2024-07-12 05:27 | Emergency (ER) | payer BC, MEDICAID, SELFPAY ==
--- OUTSIDE RECORDS SUMMARY | 2024-07-12 05:29 | XMS_ITS | Clinical Summary ---
Author Organization [facility] Address [address] [place] [id number] Care Team Providers Care Bread Wrapper Name Role Phone Priya Cameron APRN, CNP Primary Care Provide r Allergies No known active allergies Medications pramipexole (MIRAPEX) 0.125 MG tablet Take 0.375 mg by mouth At Bedtime 09/16/2020 Active methocarbamol (ROBAXIN) 500 MG tabletIndicatio ns:S/P lumbar fusion Take 1 tablet (500 mg) by mouth 3 times daily as needed for muscle spasms 40 tablet 1 03/13/2021 Active neomycin-polymy peng-hydrocortis one (CORTISPORIN) 3.5-46539-3 otic suspensionIndic ations:Infectiv e otitis externa, left [...] on file Legal Sex Male 12:29 PM SCRAP[facility] Gender Identity Not on file Sexual Orientation [...] (146 lb 4.8 oz) 03/13/2021 11:14 AM [facility] Height 167.6 cm (5' 6) 03/13/2021 11:14 AM S[facility] Body Mass Index 23.61 03/13/2021 11:14 AM S[facility] Plan of Treatment Health Maintenance Due Date [...] Vaccine ( season) 2023 02/04/2021, 06/11/2020, 05/21/2020 COLORECTAL CANCER SCREENING 01/29/2024 sDNA (Cologuard) 01/29/2024 01/28/2021 PHQ-2 (once per calendar year) 2024 DIABETES SCREENING 03/14/2024 03/14/2021, 0 03/14/2021, 03/14/2021, Additional history exists INFLUENZA VACCINE (Season Ended) 2024 12/10/2017, 12/01/2012, 11/24/2011, Additional history exists ZOSTER IMMUNIZATION Completed 04/14/2019, 8 HPV IMMUNIZATION Aged Out No longer e ligible based on patient's age to complete this topic MENINGITIS IMMUNIZATION Aged Out No l onger eligible based on patient's age to complete this topic Medical Devices Implanted Type Area Brim Stretching Machine Operator Device Identifier Shelf Expiration Date Model / Serial / Lot [place] Dbf With Delivery Tubes Implanted:Qty: 1 on 03/13/2021 by Jose Luis Coto MD at [facility] N/A: Spine Lumbar [employer] 07/12/2022 [id number] / [id number] / [place] Dbf Inject Implanted:Qty: 1 on 03/13/2021 by Jose Luis Coto MD at [facility] N/A: Spine Lumbar [employer] 01/30/2023 [id number] / [id number] / Interbody Cage, Pl, Short Size 7mm Implanted:Qty: 1 on 03/13/2021 by Jose Luis Coto MD at [facility] N/A: Spine Lumbar 01/15/2029 [id number] / / [id number] 7.5 X 40 Voyager Ats Screw Implanted:Qty: 2 on 03/13/2021 by Jose Luis Coto MD at [facility] N/A: Spine Lumbar [employer] [id number] / / [id number] - [id number] 7.5 X 35 Voyager Ats Screw Implanted:Qty: 2 on 03/13/2021 by Jose Luis Coto MD at [facility] N/A: Spine Lumbar [employer] [id number] / / [id number] Voyager Set Screw Implanted:Qty: 4 on 03/13/2021 by Jose Luis Coto MD at [facility] N/A: Spine Lumbar [employer] [id number] / / [id number] - [id number] 35mm Capped Joel Implanted:Qty: 1 on 03/13/2021 by Jose Luis Coto MD at [facility] N/A: Spine Lumbar [employer] [id number] / / [id number] - [id number] Procedures Procedure Name Priority Date/Time Associated Diagnosis Comments GLUCOSE BY METER Routine 03/14/2021 1:48 AM SCR[facility] from Last 3 Months or Most Recently Relevant to Health Maintenance Results * (ABNORMAL) Glucose by meter (03/14/2021 1:48 AM SCR[facility]) GLUCOSE BY METER POCT 126(H) 70 - 99 mg/dL 03/14/2021 1:55 AM SCRAP[facility] LABORATORY POC Comment:Dr/RN Notified Blood BLOOD SPECIMEN / Unknown 03/14/2021 1:48 AM SCR[facility] 03/14/2021 1:55 AM SCRAPER HAND us Jose Luis Coto MD LAB - BEAKER POCT Fi nal Result LABORATORY POC [facility] [address] Lab (1st floor, no room number) [place] [address], [facility] [phone] from Last 3 Months or Most Recently Relevant to Health Maintenance Insurance Advance Directives For more information, please contact: [phone] * Full Code (Latest Code Status on File) Date Activated Date Inactivated Comments 03/13/2021 7:29 PM 03/14/2021 7:13 PM All basic an d advanced life-sustaining interventions are performed as appropriate Question Answer Comments Code status determined by: Discussion with lillian nt/ legal decision maker Care Teams Bread Wrapper Relationship Specialty Start Date End Date Priya Cameron APRN FLY [employer]ER [address] [place], [place] [address] PCP - General Internal Medicine 03/03/21
[2024-07-12 05:37] VITALS: BP 114/63; PULSE 60; RESP 24; TEMP 36.4; O2SAT 95; BMI 23.4
[2024-07-12] MEDS: ONDANSETRON 2 MG/ML inj 4 MG IVP (05:47)
[2024-07-12] MEDS: KETOROLAC 15 MG/ML inj IVP (05:47)
--- NOTE | 2024-07-12 05:47 | CRLHL7_ITS ---
For Patients: As a result of the 21st Century Cures Act, medical imaging exams and procedure reports are released immediately into your electronic medical record. You may view this report before your referring provider. If you have questions, please contact your health care provider. INDICATION: Right flank pain. COMPARISON: None available. TECHNIQUE: CT of the abdomen and pelvis without intravenous contrast. Please note that all CT scans at this facility use dose modulation, iterative reconstruction, and/or weight-based dosing when appropriate to reduce radiation dose to as low as reasonably achievable. FINDINGS: The study is performed without intravenous contrast. This limits the sensitivity of the exam for the detection bowel pathology, focal lesions of the abdominopelvic viscera and vascular pathology including significant vascular stenosis, occlusion and dissection. ABDOMEN Liver: Normal contour and attenuation. No significant focal lesion. No intrahepatic biliary ductal dilatation. Gallbladder: Normal size. No pericholecystic inflammatory changes. Normal common duct caliber. Pancreas: Normal contour and attenuation. No peripancreatic inflammatory changes. No significant focal lesion. Normal main duct caliber. Spleen: Not enlarged. No significant focal lesion. Adrenal Glands: Symmetrical adrenal glands. No significant focal lesion. Kidneys: 2 mm obstructing distal right ureteral stone best demonstrated on the coronal series (series 5; image 68). This finding is associated with mild upstream dilatation of the right upper urinary tract, right renal edema and thickening of the right perinephric bridging septa consistent with obstructive uropathy. A 2 mm nonobstructing right nephrolith is noted incidentally (2; 52). Parapelvic cysts are noted in the inferior left renal sinus. Otherwise unremarkable left kidney. No evidence of urolithiasis involving the left kidney or left upper urinary tract. Gastrointestinal tract: No acute findings. Vascular: Chronic mild aortoiliac atherosclerotic mural calcification. Normal outer wall to outer wall abdominal aortic caliber. Patency and luminal caliber of the abdominopelvic arterial and venous vasculature cannot be assessed on this noncontrast study. Peritoneal Cavity/Retroperitoneum: No ascites. No adenopathy. PELVIS No bladder lesion is identified. No significant incidental findings related to the prostate or seminal vesicles. No significant ascites. No adenopathy. SKELETON AND BODY WALL No acute or significant incidental findings. 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 L4 central superior vertebral body Schmorl`s node. LOWER THORAX Partially included lower thoracic wall, lungs, pleural spaces and mediastinum are without significant incidental findings. IMPRESSION: There is a 2 mm obstructing distal right ureteral stone which is best demonstrated on the coronal series (series 5; image 68). This finding is associated with mild upstream dilatation of the right upper urinary tract, right renal edema and thickening of the right perinephric bridging septa indicating obstructive uropathy. A 2 mm nonobstructing right nephrolith is noted incidentally (2; 52). Please note that all CT scans at this facility use dose modulation, iterative reconstruction, and/or weight-based dosing when appropriate to reduce radiation dose to as low as reasonably achievable. Dictated by Durga Prince MD @ 07/12/2024 6:30:36 AM (Electronically Signed)
[2024-07-12 05:50] LABS: Appearance Urine Clear (Clear); Bilirubin Urine Negative (Negative); Blood Urine 3+ (Negative); Color Urine Yellow (Yellow); Glucose Urine Negative (Negative); Ketones Urine 1+ (Negative); Leukocyte Esterase Urine Negative (Negative); Nitrite Urine Negative (Negative); Protein Urine 2+ (Negative); Specific Gravity Urine >= 1.030 (1.000-1.030); Urobilinogen Urine 0.2 (0.2-1.0); pH Urine 5.5 (5.0-8.5)
--- NOTE | 2024-07-12 05:51 | ED.GENADULT ---
HPI - General Adult General Chief complaint: Flank Pain Stated complaint: Kidney stones- pain Time Seen by Provider: 07/12/24 05:32 Source: patient Mode of arrival: ambulatory Limitations: no limitations History of Present Illness HPI narrative: 58-year-old male with a notable prior history of kidney stones presents the emergency department with right flank pain for the past four hours. No trauma or injury. No dysuria or hematuria. Feels nauseated as well, no other GI symptoms. Bowel movements normal, no diarrhea. Did not try taking any Tylenol or ibuprofen to help with symptoms. Last kidney stone was about 2 months ago, 3 mm and nonobstructing. Had several other similarly sized stones in the renal parenchyma. No fevers. Denies other systemic symptoms. Pain is constant and achy, severely rated. Reports his past medical history is notable for restless leg syndrome. Uses primary proximal for this. Also has prescription for rosuvastatin. Reports that he has an allergy to tamsulosin. ROS is notable for the flank pain and nausea only, otherwise denies times 12 systems. Related Data Home Medications ?Medication ?Instructions ?Recorded ?Confirmed pramipexole 0.125 mg tablet 0.25 - 0.375 mg PO QPM 07/12/24 07/12/24 rosuvastatin 40 mg tablet 40 mg PO QPM 07/12/24 07/12/24 Previous Rx's ?Medication ?Instructions ?Recorded tamsulosin 0.4 mg capsule (Flomax) 0.4 mg PO DAILY #10 caps 05/19/24 ketorolac 10 mg tablet 10 mg PO Q6H PRN pain #20 tabs 07/12/24 ondansetron 4 mg disintegrating 4 mg PO Q8H PRN nausea and 07/12/24 tablet vomiting #5 tabs Allergies Allergy/AdvReac Type Severity Reaction Status Date / Time tamsulosin Allergy Unknown Verified 07/12/24 05:49 [facility] Social History Smoking Status: Never smoker Do you use any of these nicotine containing products: None How often do you have a drink containing alcohol: never How often do you have six or more drinks on one occasion: Never AUDIT-C Alcohol total score: 0 Non-prescribed substance use: denies use service: No Exam Const: Vital Signs, click to edit/add: Vital Signs - 24 hr 07/12/24 05:37 Temperature 97.5 F L Pulse Rate [Left] 60 Respiratory Rate 24 Blood Pressure [Ri ght Forearm] 114/63 Pulse Oximetry 95 Oxygen Delivery Me thod Room Air Documenting provider has reviewed patient's vital signs: yes Common normals: no apparent distress and alert General appearance: cooperative Other: Appears uncomfortable, frequent moaning in pain. Redirectable. HENMT: Common normals: normocephalic and moist oral mucous membranes Head and scalp: normocephalic Face and sinus: normal facial exam Mouth: oral and palatal mucosa normal Eye: Common normals: conjunctivae normal General eye: normal appearance of both eyes Conjunctiva: conjunctiva(e) normal Neck & C-Spine: General: normal visual inspection Resp: Common normals: normal respiratory effort and no use of accessory muscles Effort & inspection: able to speak in complete sentences Cardio: Common normals: regular rate, regular rhythm, S1 normal heart sound, S2 normal heart sound and no murmurs Rate: regular rate Rhythm: regular rhythm Heart sounds: S1 normal and S2 normal GI: Common normals: Normal to inspection, nondistended, normoactive bowel sounds present, soft to palpation, non-tender, no hepatosplenomegaly and no masses Palpation: soft and no hepatosplenomegaly : Common normals: no CVA tenderness Bladder/kidney exam: no CVA tenderness Back & Pelvis: Common normals: no CVA tenderness Extremity: Common normals: normal to inspection and no pedal edema Neuro: Common normals: no focal motor deficits Sensorium/orientation: alert Speech: speech normal Psych: Appearance: grossly normal Activity/motor behavior: appropriate eye contact Insight: fair Judgement: fair Skin: Common normals: no rashes or lesions noted General skin exam: no rashes or lesions noted Course Course ED Course: 58-year-old male with right flank pain suspicious for ureterolithiasis, history of prior similar symptoms. Differential diagnosis less likely for intra-abdominal processes including pancreatitis, bowel obstruction, urinary infection, trauma, musculoskeletal pain, referred pain, amongst others. Prior history of appendectomy, unlikely that this could be appendicitis. Will place peripheral IV, obtain labs to look at infection markers, inflammatory markers and creatinine. CT of the abdomen and pelvis without contrast, urinalysis. Will give Toradol and Zofran IV. Await findings. Reevaluation(s) Time of Reevaluation #1: 06:41 Reevaluation #1: Counseled patient on CT findings of 2 mm distal right ureterolithiasis, does fit clinically with symptoms. Feeling much better after Toradol and Zofran. Has not had any vomiting here in the ED. normal labs otherwise discussed. Recommended conservative management with pain control. Counseled on pushing fluids, frequent movement. Unlikely to need surgical intervention. Prescription for Toradol 10 mg q.i.d. p.r.n., counseled on [id number] Tylenol. Prescription for Zofran given for nausea as needed as well. No Flomax due to reported allergy. Alarm symptoms reviewed that would warrant ED presentation. Written instructions provided. All questions answered. Vital Signs Vital signs: Initial Vital Signs Temperature 97.5 F L 07/12/24 05:37 Temperature Source Temporal Artery Scan 07/12/24 05:37 Pulse Rate 60 07/12/24 05:37 Respiratory Rate 24 07/12/24 05:37 Blood Pressure 114/63 07/12/24 05:37 Blood Pressure Mean 80 07/12/24 05:37 Blood Pressure Position Left Lateral 07/12/24 05:37 Pulse Oximetry 95 07/12/24 05:37 Oxygen Delivery Method Room Air 07/12/24 05:37 Vital Signs Temperature 97.5 F L 07/12/24 05:37 Pulse Rate 60 07/12/24 05:37 Respiratory Rate 24 07/12/24 05:37 Blood Pressure 114/63 07/12/24 05:37 Pulse Oximetry 95 07/12/24 05:37 Oxygen Delivery Method Room Air 07/12/24 05:37 Temperature 97.5 F L 07/12/24 05:37 Pulse Rate 60 07/12/24 05:37 Respiratory Rate 24 07/12/24 05:37 Blood Pressure 114/63 07/12/24 05:37 Pulse Oximetry 95 07/12/24 05:37 Oxygen Delivery Method Room Air 07/12/24 05:37 Medications Administered Medications: Discontinued Medications Generic Name Dose Route Start Last Admin Trade Name Freq PRN Reason Stop Dose Admin Ketorolac Tromethamine 15 mg 07/12/24 05:37 07/12/24 05:47 Ketorolac 15 Mg/Ml Inj IVP 07/12/24 05:38 15 mg ONCE ONE Administration Ondansetron HCl 4 mg 07/12/24 05:37 07/12/24 05:47 Ondansetron 2 Mg/Ml Inj IVP 07/12/24 05:38 4 mg ONCE ONE Administration Medical Decision Making Lab Data Lab results reviewed: Yes I reviewed the patient's lab results Lab results narrative: Labs reassuring besides very mild leukocytosis and hematuria expected with ureterolithiasis. Labs: Lab Results 07/12/24 07/12/24 Range/Units 05:44 05:45 WBC 12.42 H (4.50-11.00) K/uL RBC 4.78 (4.30-5.90) m/uL Hgb 15.2 (13.5-17.5) gm/dL Hct 44.5 (37.0-53.0) % MCV 93 (80-100) fL MCH 32 (26-34) pg MCHC 34 (32-36) gm/dL RDW Coeff of Disha 12.9 (11.5-15.5) % Plt Count 174 (140-440) K/uL Neut % (Auto) 81.5 H (42.0-72.0) % Lymph % (Auto) 10.6 L (20-44) % [place] % (Auto) 6.7 (0.0-11.0) % Eos % (Auto) 0.6 (0.0-7.0) % Baso % (Auto) 0.4 (0.0-3.0) % Neut # (Auto) 10.10 H (1.7-7.0) K/uL Lymph # (Auto) 1.30 (0.90-2.90) K/uL [place] # (Auto) 0.80 (0.00-0.90) K/UL Eos # (Auto) 0.10 (0.00-0.50) K/uL Baso # (Auto) 0.00 (0.00-0.30) K/uL Abs Immat Gran (auto) 0.00 (0.00-0.30) K/uL Imm/Tot Granulo (auto) 0.2 % Sodium 141 (135-149) mmol/L Potassium 3.6 (3.6-5.1) mmol/L Chloride 105 (96-114) mmol/L Carbon Dioxide 25 (20-32) mmol/L Anion Gap 11 (7-15) mEq/L BUN 25 (7-30) mg/dL Creatinine 1.3 (0.5-1.5) mg/dL Estimated Creat Clear 56.57 Estimated GFR 64 ml/min Glucose 119 H (60-115) mg/dL Calcium 9.1 (8.4-10.6) mg/dL C-Reactive Protein 1.0 (0.5-1.0) mg/dL Urine Color Yellow (Yellow) Urine Appearance Clear (Clear) Urine pH 5.5 (5.0-8.5) Ur Specific [place] >= 1.030 (1.000-1.030) Urine Protein 2+ A (Negative) Urine Glucose (UA) Negative (Negative) Urine Ketones 1+ A (Negative) Urine Blood 3+ A (Negative) Urine Nitrite Negative (Negative) Urine Bilirubin Negative (Negative) Urine Urobilinogen 0.2 (0.2-1.0) Ur Leukocyte Esterase Negative (Negative) Urine RBC 2-5 A (0-2) Urine WBC 2-5 (0-5) Ur Squamous Epith Cells Few (None-Few) Urine Bacteria Moderate A (None) Urine Mucus Many A (None) Imaging Data CT scan - abdomen: Attestation: I have reviewed the pertinent imaging results. My impression: Very small right ureteral stone with mild hydronephrosis. Radiologist's impression: IMPRESSION: There is a 2 mm obstructing distal right ureteral stone which is best demonstrated on the coronal series (series 5; image 68). This finding is associated with mild upstream dilatation of the right upper urinary tract, right renal edema and thickening of the right perinephric bridging septa indicating obstructive uropathy. A 2 mm nonobstructing right nephrolith is noted incidentally (2; 52). Please note that all CT scans at this facility use dose modulation, iterative reconstruction, and/or weight-based dosing when appropriate to reduce radiation dose to as low as reasonably achievable. Dictated by Durga Prince MD @ 07/12/2024 6:30:36 AM Discharge Plan Discharge Clinical Impression: Ureterolithiasis Patient Disposition: Home w/ Parent or Adult Condition: Improved Instructions: Ureteral Stones (ED) Additional Instructions: As we discussed, you have a 2 mm stone in the distal right ureter, the tube that connects the kidney with the bladder. I do believe this is the source of your pain. I am glad that the medication we gave you seems to be helping. A stone this size will pass typically without any complication. Drink lots of fluids, move frequently to furnace mechanic helper in this. For pain, use [id number] Tylenol 1000 mg every 6 hours and I will provide you with a prescription of Toradol which is an anti-inflammatory pain medication, nonnarcotic them you may use up to every 6 hours. It is in the same family as ibuprofen and Aleve so do not take those medications in addition to the Toradol. If you run out of the Toradol, you may switch to either ibuprofen or Aleve per package insert instructions. I will also provide you with a few anti nausea tablets known as Zofran. These may help if the nausea returns. This stone should pass within a few days, I do not recommend straining your urine due to the small size. If you have high fever, severe weakness, other signs of complication, this could signal and infection and I would want you to come back to the emergency room. Activity Level: Activity as Tolerated Discharge Diet: Regular Prescriptions: New ketorolac 10 mg tablet 10 mg PO Q6H PRN (Reason: pain) Qty: 20 1RF Rx Instructions: maximum total duration of 5 days from all oral, intranasal, or parenteral formulations ondansetron 4 mg tablet,disintegrating 4 mg PO Q8H PRN (Reason: nausea and vomiting) Qty: 5 0RF No Action tamsulosin [Flomax] 0.4 mg capsule 0.4 mg PO DAILY Qty: 10 2RF pramipexole 0.125 mg tablet 0.25 - 0.375 mg PO QPM rosuvastatin 40 mg tablet 40 mg PO QPM Follow Up/Referrals: Provider,Not a Local [Primary Care Provider] - Stand Alone Forms: [employer] Info Instructions
[2024-07-12 05:55] LABS: Basophils Percent Auto 0.4 % (0.0-3.0); Eosinophils Percent Auto 0.6 % (0.0-7.0); Hematocrit 44.5 % (37.0-53.0); Hemoglobin* 15.2 gm/dL (13.5-17.5); Immature Granulocytes Pct Auto 0.2 %; Lymphocytes Percent Auto 10.6 % (20-44); Mean Corpuscular HGB Conc 34 gm/dL (32-36); Mean Corpuscular Hemoglobin 32 pg (26-34); Mean Corpuscular Volume 93 fL (80-100); Monocytes Percent Auto 6.7 % (0.0-11.0); Neutrophils Percent Auto 81.5 % (42.0-72.0); Platelet Count* 174 K/uL (140-440); RDW Coefficient of Variation % 12.9 % (11.5-15.5); Red Blood Count 4.78 m/uL (4.30-5.90); White Blood Count* 12.42 K/uL (4.50-11.00)
[2024-07-12 06:00] LABS: Slide Review Reflex No
[2024-07-12 06:04] LABS: Bacteria Urine Moderate; Mucus Urine Many; Squamous Epithelial Cell Urine Few (None-Few)
[2024-07-12 06:07] LABS: Chloride* 105 mmol/L (96-114); Potassium* 3.6 mmol/L (3.6-5.1); Sodium* 141 mmol/L (135-149)
[2024-07-12 06:11] LABS: Anion Gap 11 mEq/L (7-15); Blood Urea Nitrogen* 25 mg/dL (7-30); Calcium* 9.1 mg/dL (8.4-10.6); Carbon Dioxide* 25 mmol/L (20-32); Creatinine* 1.3 mg/dL (0.5-1.5); Est. Creatinine Clearance* 56.57; Estimated Glomerular Filt Rate 64 ml/min; Glucose* 119 mg/dL (60-115)
--- OUTSIDE RECORDS SUMMARY | 2024-07-12 06:30 | XMS_ITS | Clinical Summary ---
Author Organization [facility] Address [address] [place] [address] Care Team Providers Care Lieutenant/Deputy Name Role Phone Charles Jimenez MD Primary Care Provider Allergies Active Allergy Reactions Criticality Noted Date Comments Tamsulosin *Unknown - Pt Doesn't Remember 03/19 Medications pramipexole 0.125 mg tabletIndicatio ns:Restless leg syndrome Take 2-3 Tablets (0.25-0.375 mg) by mouth at bedtime. 270 Tablet 3 05/29/2024 Active rosuvastatin 40 mg tabletIndicatio ns:Hyperlipidem ia, mixed Take 1 Tablet (40 mg) by mouth at bedtime. 90 Tablet 3 05/29/2024 Active Active Problems Problem Noted Date Diagnosed Date Routine adult health maintenance 05/25/2023 Overview (05/25/2023): Colonoscopy, 05/22, recheck 6 months. Hyperlipidemia, mixed 03/19/2023 Smoking 03/19/2023 Lumbar disc disease, L5-S1 fusion, 202103/19/19 Restless leg syndrome 03/19/2023 Encounters Date Type Department Care Team Description 06/05/2024 Telephone [facility] [address] [place], [place] [id number] Charles Jimenez MD Results 05/29/2024 11:30 AM CDT Office Visit [facility] [address] [place], [place] [id number] Charles Jimenez MD Physical; ER Follow up (Kidney stone.); Knee Pain/problem; Immunization/Injectio n 05/28/2024 Travel 05/23/2024 Telephone [facility] [address] [place] [address] Giovanni Moore MD Appointment (Olivier Stones /) from Last 3 Months Immunizations Immunization Administration Dates Next Due Hep B, Adolescent/high Risk 08/15/2013 Hepatitis A (Adult) 08/15/2013 Hepatitis A, Unspecified 07/29/2004,10/02/2002 Hepatitis B (Adult) 05/26/2022,08/15/2013 Influenza Virus, Unspecified 12/01/2012,11/24/19 12,12/18/2009 Influenza, IIV3 (Age >=3 years) 11/24/2011 Influenza, IIV4 12/10/2017 Influenza, split (incl. zhang fied surface antigen) 01/06/2006 MMR 05/26/2022 Measles 07/13/1978 Pneumococcal Poly,23-Valent (Pneumovax) 08/16/19 14 Td, Preservative Free (age >= 7 Years) 3 Tdap 05/29/2024,08/15/2013 Typhoid (injectable) 05/26/2022 Typhoid Parenteral,Killed 08/15/2013 Zoster (Shingrix-RZV, recombinant) 04/14/2019, Social History Tobacco Use Types Packs/Day Years Used Date Smoking Tobacco: Every Day Cigarettes 0.5 43.4 Started: 03/01/1981 Passive Smoke Exposure: Current Smokeless Tobacco: Never Tobacco Cessation:Ready to Q uit: No; Counseling Given: Yes Alcohol Use Standard Drinks/Week Comments Yes 0 (1 standard drink = 0.6 oz pur e alcohol) Very Rare PHQ-2 Answer Date Recorded PHQ-2 TOTAL SCORE 0 05/29/2024 Social Connections Answer Date Recorded Do you often feel lonely or isolated from those around you? 0 05/28/2024 Financial Resource Strain Answer Date R ecorded Difficulty of Paying Living Expenses 3 05/28/2024 Difficulty of Paying Living Expenses Not on file 05/28/2024 Food Insecurity Answer Date Recorded Do you worry your food will run out before you are able to buy more? 1 05/28/2024 Transportation Needs Answer Date Record ed Does lack of transportation keep you from medica l appointments? 1 05/28/2024 Does lack of transportation keep you from work, meetings or getting things that you need? 1 05/28/2024 Housing Stability Answer Date Recorded What is your housing situation today? 1 05/28/2024 Utilities Answer Date Recorded Do you have trouble paying f or utilities (for example, heat, electricity, water, phone)? 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 Gender Identity Not on file Sexual Orientation Not on file Obstetrics History Last Filed Vital Signs Vital Sign Reading Time Taken Comments Blood Pressure 136/76 05/29/2024 11:31 AM CDT Pulse 83 05/29/2024 11:31 AM CDT Temperature - - Respiratory Rate - - Oxygen Saturation 98% 05/29/2024 11: 31 AM CDT Inhaled Oxygen Concentration - - Weight 69.8 kg (153 lb 14.4 oz) 025 11:31 AM CDT Height 167.6 cm (5' 6) 05/29/2024 11:3 1 AM CDT Body Mass Index 24.84 05/29/2024 11:31 AM CDT Plan of Treatment Health Maintenance Due Date Last Done Comments HIV for age 15-65 1981 Hepatitis C screening for ag e 18-79 1984 Pneumococcal series for age 50+ (2 of 2 - PCV) 08/15/2014 08/15/[address] (for lung CA) ag e 50-80 2016 COVID-19 vaccine series ( season) 2023 02/04/2021, 06/11/2020, 05/21/2020 Influenza Vaccine (Season Ended) 2024 12/10/2017, 12/01/2012, 11/24/2011, Additional history exists BMI (ht and wt on same day) for age 18+ 05/29/2025 05/29/2024, 03/25/2023 Depression screening for age 12+ 05/29/2025 05/30/19 25 Lipids for age 45-75 05/29/2029 05/29/2024, 03/25/19 24 Colonoscopy through age 75 05/19/2033 05/20/2023 Tetanus booster 05/29/2034 05/29/2024, 07/30, 10/02/2002 Zoster (shingles) series for age 50+ Completed 04/14/2019, 07/12/2017 Tdap Completed 05/29/2024, 08/15/2013 Procedures Procedure Name Priority Date/Time Associated Diagnosis Comments PSA TOTAL Routine 05/29/2024 11:59 AM CDT Special screening for malignant neoplasm of prostate LIPID PANEL Routine 05/29/2024 11:59 AM CDT Hyperlipidemia, mixed BASIC METABOLIC PANEL Routine 05/29/2024 11:59 AM CDT Routine adult health maintenance SCAN-COLONOSCOPY 05/20/2023 10:0 0 AM CDT from Last 3 Months or Most Recently Relevant to Health Maintenance Results * PSA TOTAL (05/29/2024 11:59 AM CDT) PSA, TOTAL 1.16 < OR = 4.00 ng/mL [facility] Comment: The total PSA value from this assay system is standardized against the WHO standard. The test result will be approximately 20% lower when compared to the equimolar-standardized total PSA (Gopi [place]). Comparison of serial PSA results should be interpreted with this fact in mind. This test was performed using the Siemens chemiluminescent method. Values obtained from different assay methods cannot be used interchangeably. PSA levels, regardless of value, should not be interpreted as absolute evidence of the presence or absence of disease. Blood BLOOD SPECIMEN / Unknown 05/29/2024 11:59 AM CDT 05/29/2024 12:00 PM CDT us Charles Jimenez MD CHEMISTRY Final Result Performing Organization Address City/[facility]/ZIP Co de Phone Number [employer] [facility] [address] [place] [address], [place] [phone] [facility] [address] [place] [address] * (ABNORMAL) LIPID PANEL (05/29/2024 11:59 AM CDT) [facility] Signature CHOLESTEROL, TOTAL 265(H) <200 mg/dL [facility] Sinhae HDL CHOLESTEROL 55 > OR = 40 mg/dL [facility] TRIGLYCERIDES 97 <150 mg/dL [facility] Fort[facility] LDL-CHOLESTEROL 188(H) mg/dL (calc) [facility] ok[facility]on Freitas Comment: Reference range: <100 Desirable range <100 mg/dL for primary prevention; <70 mg/dL for patients with CHD or diabetic patients with > or = 2 CHD risk factors. LDL-C is now calculated using the Zen-Barbara calculation, which is a validated novel method providing better accuracy than the Friedewald equation in the estimation of LDL-C. Zen SS et al. PANCHO. 2013;310(19): 4120-1848 (http://education.Addepar/faq/KNG819) CHOL/HDLC RATIO 4.8 <5.0 (calc) [facility] deondre Sinhae NON HDL CHOLESTEROL 210(H) <130 mg/dL (calc) [facility] deondre Freitas Comment: For patients with diabetes plus 1 major ASCVD risk factor, treating to a non-HDL-C goal of <100 mg/dL (LDL-C of <70 mg/dL) is considered a therapeutic option. Blood BLOOD SPECIMEN / Unknown 05/29/2024 11:59 AM CDT 05/29/2024 12:00 PM CDT Charles Jimenez MD CHEMISTRY Final Result [employer] [facility] [address] [place] [address], [facility] [address] [place] [address] * BASIC METABOLIC PANEL (05/29/2024 11:59 AM CDT) GLUCOSE 96 65 - 99 mg/dL [facility] Comment: Fasting reference interval UREA NITROGEN (BUN) 17 7 - 25 mg/dL [facility] CREATININE 1.16 0.70 - 1.30 mg/dL [facility] EGFR 73 > OR = 60 mL/min/1. 73m2 [facility] BUN/CREATININE RATIO SEE NOTE: 6 - 22 (calc) [facility] Comment: Not Reported: BUN and Creatinine are within reference range. SODIUM 141 135 - 146 mmol/L [facility] POTASSIUM 3.8 3.5 - 5.3 mmol/L [facility] CHLORIDE 107 98 - 110 mmol/L [facility] CARBON DIOXIDE 25 20 - 32 mmol/L [facility] ELECTROLYTE BALANCE 9 7 - 17 mmol/L (calc) [facility] CALCIUM 9.0 8.6 - 10.3 mg/dL [facility] Blood BLOOD SPECIMEN / Unknown 05/29/2024 11:59 AM CDT 05/29/2024 12:00 PM CDT us Charles Jimenez MD CHEMISTRY Final Result [employer] [facility] [address] [place] [address], [facility] [address] [place] [address] * SCAN-COLONOSCOPY (05/20/2023 10:00 AM CDT) Narrative Procedure Note Maria GuadalupeBeto Cantu MD - 05/20/2023 9:16 AM CDT [facility] [address] [facility], [address], [place] [address] Patient Name: Morgan Rodriguez Gender: Male Exam Date: 05/20/2023 Visit Number: [id number] Age: 57 Years Date of : 1965 Attending MD: Beto Royal MD Medical Record#: [id number] Procedure: Colonoscopy Indications: Colorectal cancer screening Referring [...] the exam is normal. Impression: Colorectal polyps MD impression comments: You will need to come [...] of the colorectum is defined by the [place] Collegeof Gastroenterology (ACG) as an adenoma that is 1 cm or more in size,contains an appreciable villous component, or has high grade dysplasia(Zackery BARROSO; Polyp Guideline: Diagnosis, Treatment, and Surveillance forPatients with Colorectal Polyps. Am J Vdnlkakcrejoh1932;95(11):2791-5835). This polyp qualifies as such. Patients withadvanced adenomas are at increased risk for synchronous and metachronousadditional advanced adenomas. Appropriate follow-up is suggested. MICROSCOPIC A: Performed B: Performed C: Performed D: Performed E: Performed Electronically signed by: Guillermo Levi MD Interpreted at [facility], [address] [place], [place] [id number] Orders Instruction(s)/Education: Instruction/Education Timeframe Assessment Colon Cancer [...] Beto Lerma MD OTHER Final Resu lt from Last 3 Months or Most Recently Relevant to Health Maintenance Insurance [facility] ADVANTAGE Care Teams Lieutenant/Deputy Relationship Specialty [place] [address] [place] [address] PCP - General Family Practice 03/25/23
--- OUTSIDE RECORDS SUMMARY | 2024-07-12 06:30 | XMS_ITS | Clinical Summary ---
Author Organization [facility] Address [address] [place] [address] Care Team Providers Care Aerospace Physiological Technician Name Role Phone Priya Cameron APRN, CNP Primary Care Provide r Allergies No known active allergies Medications pramipexole (MIRAPEX) 0.125 MG tablet Take 0.375 mg by mouth At Bedtime 09/16/2020 Active methocarbamol (ROBAXIN) 500 MG tabletIndicatio ns:S/P lumbar fusion Take 1 tablet (500 mg) by mouth 3 times daily as needed for muscle spasms 40 tablet 1 03/13/2021 Active neomycin-polymy peng-hydrocortis one (CORTISPORIN) 3.5-64549-0 otic suspensionIndic ations:Infectiv e otitis externa, left [...] on file 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 Gender Identity Not on file Sexual [...] (146 lb 4.8 oz) 03/13/2021 11:14 AM CONTOUR PATH TAPE MILL OPERATOR Height 167.6 cm (5' 6) 03/13/2021 11:14 AM CONTOUR PATH TAPE MILL OPERATOR Body Mass Index 23.61 03/13/2021 11:14 AM CONTOUR PATH TAPE MILL OPERATOR Plan of Treatment Health Maintenance Due [...] this topic Medical Devices Implanted Type Area Grip Boss Device Identifier Shelf Expiration Date Model / Serial / Lot Vowinckel Dbf With Delivery Tubes Implanted:Qty: 1 on 03/13/2021 by Jose Luis Coto MD at [facility] N/A: Spine Lumbar [employer] 07/12/2022 [id number] / [id number] / Vowinckel Dbf Inject Implanted:Qty: 1 on 03/13/2021 by Jose Luis Coto MD at [facility] N/A: Spine Lumbar [employer] 01/30/2023 [id number] / [id number] / Interbody Cage, Pl, Short Size 7mm Implanted:Qty: 1 on 03/13/2021 by Jose Luis Coto MD at [facility] N/A: Spine Lumbar 01/15/2029 [id number] / / [id number] 7.5 X 40 Voyager Ats Screw Implanted:Qty: 2 on 03/13/2021 by Jose Luis Coto MD at [facility] N/A: Spine Lumbar [employer] [id number] / / [id number] - [id number] 7.5 X 35 Voyager Ats Screw Implanted:Qty: 2 on 03/13/2021 by Jose Luis Coto MD at [facility] N/A: Spine Lumbar [employer] [id number] / / [id number] Voyager Set Screw Implanted:Qty: 4 on 03/13/2021 by Jose Luis Coto MD at [facility] N/A: Spine Lumbar [employer] [id number] / / [id number] - [id number] 35mm Capped Joel Implanted:Qty: 1 on 03/13/2021 by Jose Luis Coto MD at [facility] N/A: Spine Lumbar [employer] [id number] / / 800 - [id number] Procedures Procedure Name Priority Date/Time Associated Diagnosis Comments GLUCOSE BY METER Routine 03/14/2021 1:48 AM CONTOUR PATH TAPE MILL OPERATOR from Last 3 Months or Most Recently Relevant to Health Maintenance Results * (ABNORMAL) Glucose by meter (03/14/2021 1:48 AM CONTOUR PATH TAPE MILL OPERATOR) GLUCOSE BY METER POCT 126(H) 70 - 99 mg/dL 03/14/2021 1:55 AM CONTOUR PATH TAPE MILL OPERATOR [facility] Comment:Dr/RN Notified Blood BLOOD SPECIMEN / Unknown 03/14/2021 1:48 AM CONTOUR PATH TAPE MILL OPERATOR 03/14/2021 1:55 AM CONTOUR PATH TAPE MILL OPERATOR us Jose Luis Coto MD LAB - BEAKER POCT Fi nal Result LABORATORY POC [facility] [address] Lab (1st floor, no room number) [place] [address], [facility] [phone] from Last 3 Months or Most Recently Relevant to Health Maintenance Insurance Advance Directives For more information, please contact: [phone] * Full Code (Latest Code Status on File) Date Activated Date Inactivated Comments 03/13/2021 7:29 PM 03/14/2021 7:13 PM All basic an d advanced life-sustaining interventions are performed as appropriate Question Answer Comments Code status determined by: Discussion with lillian nt/ legal decision maker Care Teams Aerospace Physiological Technician Relationship Specialty Start Date End Date Priya Cameron APRN PAN RECLAIM PROCESSOR [address] [place], [place] [address] PCP - General Internal Medicine 03/03/21
== END 2024-07-12 06:57 | disposition home or self-care (01) ==
PROVIDERS: Emergency Provider Family Medicine
DX: N20.1 Calculus of ureter (principal); R11.0 Nausea
CPT/HCPCS: 36415; 74176; 80048; 81001; 81003; 85025; 86140; 87086; 96374; 96375; 99284; J1885; J2405

== ENCOUNTER 2024-09-12 23:04 | Emergency (ER) | payer BC, SELFPAY ==
--- OUTSIDE RECORDS SUMMARY | 2024-01-13 03:47 | XMS_ITS | Continuity of Care Document ---
Author Organization [facility] Address [address] [address] [place] [address] Phone Care Team Providers Care Certified Forklift Operator Name Role Phone Beto Royal MD Unavailable Unavailable Allergies, Adverse Reactions, Alerts Substance Reaction Status Criticality No Known Allergies Active No Inform ation Medications Medication Instructions Dosage Effective Dates (start - stop) Status Comments pramipexole 0.125 mg tablet take 1 tablet by oral route 3 times every day 0.125 MG - Active Ezallor Sprinkle 5 mg capsule take 1 capsule by oral route every day 5 MG - Active Procedures Procedure Date Colonoscopy Flex; W/remov Les- 24 Colonoscopy Flex; W/bx 1/mx Level Iv-surg Path Gross/micro Advance Directives Directive Yes / No Effective Date File Name No Information Encounters Encounter Description Practice Location Reason(s) For Visit Diagnoses Date Provider Providers Copied on Encounter [facility], [address] [address], [place], [id number], [place] tel:[phone] [facility] No Information Genny Pérez. [address] [facility], [facility] [address], [place], [place], [id number], [place]. tel:[phone] [facility], [address] [address], [place], [id number], [place] tel:[phone] [facility] GI Symptoms or Concerns (chief complaint) Colorectal polypsEncounter for screening for malignant neoplasm of colonBenign neoplasm of ascending colonBenign neoplasm of transverse colonBenign neoplasm of sigmoid colon 4 Genny Pérez. [address] [facility], [facility] [address], [place], [place], [id number], [place]. tel:[phone] Referring Provider: Charles Jimenez MD J, [address] [place], [address]. tel:[phone] [facility], [address] [address], [place], [place], [id number], [place] tel:[phone] [facility] No Information Gab Fuentes. [address] [facility], [facility] [address], [place], [place], [id number], [place]. tel:[phone] Family History Family Member Type Diagnosis Age At Onset No Information Immunizations Vaccine Date Status Comments measles, mumps and rubella v irus vaccine administered Note: [facility] bi-direct ional interface ; Source: Other Registry typhoid Vi capsular polysaccharide vaccine administered Note: [facility] bi-dir ectional interface ; Source: Other Registry Engerix-B administered Note: [facility] bi-d irectional interface ; Source: Other Registry SARS-COV-2 (COVID-19) vaccin e, mRNA, spike protein, LNP, preservative free, 30 mcg/0.3mL dose administered Note: [facility] bi-direct ional interface ; Source: Other Registry SARS-COV-2 (COVID-19) vaccin e, mRNA, spike protein, LNP, preservative free, 30 mcg/0.3mL dose administered Note: [facility] bi-direct ional interface ; Source: Other Registry SARS-COV-2 (COVID-19) vaccin e, mRNA, spike protein, LNP, preservative free, 30 mcg/0.3mL dose administered Note: [facility] bi-direct ional interface ; Source: Other Registry zoster vaccine recombinant administered N ote: [facility] bi-directional interface ; Source: Other Registry Afluria Qd administered Note: [facility] bi-directional interface ; Source: Other Registry zoster vaccine recombinant administered N ote: [facility] bi-directional interface ; Source: Other Registry Engerix-B administered Note: [facility] bi-d irectional interface ; Source: Other Registry Havrix administered Note: [facility] bi-d irectional interface ; Source: Other Registry typhoid vaccine, parenteral, other than acetone-killed, dried administered Note: [facility] bi- directional interface ; Source: Other Registry Pneumovax 23 administered Note: [facility] bi-d irectional interface ; Source: Other Registry tetanus toxoid, reduced diphtheria toxoid, and acellular pertussis vaccine, adsorbed administered Note: [facility] b i-directional interface ; Source: Other Registry influenza virus vaccine, unspecified formulation administered Note: [facility] bi-di rectional interface ; Source: Other Registry Influenza, seasonal, injectable administe red Note: [facility] bi- directional interface ; Source: Other Registry influenza virus vaccine, unspecified formulation administered Note: [facility] bi-di rectional interface ; Source: Other Registry measles virus vaccine administered Note: [facility] bi-directional interface ; Source: Other Registry Payers Payer name Insurance type Covered libertarian ID Authoriza tion(s) Blue Plus Of [facility] [id number] Social History Type Description Quantity Date Captured Comments Sex Male Smoking Status No Information Chief Complaint And Reason For Visit No Information Reason For Referral Reason For Referral No Information History Of Present Illness Encounter Date Complaint History Of Prese nt Illness GI Symptoms or Concerns Functional Status Date Functional Assessmen t No Information Instructions Date Instruction Additional Infor mation Colon Cancer Prevention Related to Colorectal polyps Colon Polyps Related to Color ectal polyps Assessments Type Assessment Date No Information Patient Care Teams Name Effective Dates (start - stop) Status Members No Information
--- OUTSIDE RECORDS SUMMARY | 2024-01-13 03:47 | XMS_ITS | Continuity of Care Document ---
Author Organization [facility] Address [address] [address] [place] [address] Phone Care Team Providers Care Dural Mechanic Name Role Phone Beto Royal MD Unavailable [...] Diagnoses Date Provider Providers Copied on Encounter [facility], [address] [address], [place], [id number], [place] tel:[phone] [facility] No Information Genny Pérez. [address] [facility], [facility] [address], [place], [place], [id number], [place]. tel:[phone] [facility], [address] [address], [place], [id number], [place] tel:[phone] [facility] GI Symptoms or Concerns (chief complaint) Colorectal polypsEncounter for screening for malignant neoplasm of colonBenign neoplasm of ascending colonBenign neoplasm of transverse colonBenign neoplasm of sigmoid colon 4 Genny Pérez. [address] [facility], [facility] [address], [place], [place], [id number], [place]. tel:[phone] Referring Provider: Charles Jimenez MD J, [address] [place], [address]. tel:[phone] [facility], [address] [address], [place], [place], [id number], [place] tel:[phone] [facility] No Information Gab Fuentes. [address] [facility], [facility] [address], [place], [place], [id number], [place]. tel:[phone] Family History Family Member Type Diagnosis Age [...] Registry Payers Payer name Insurance type Covered green party ID Authoriza tion(s) Blue Plus Of [facility] [id number] Social History Type Description Quantity Date Captured [...]
--- OUTSIDE RECORDS SUMMARY | 2024-09-12 23:06 | XMS_ITS | Clinical Summary ---
Author Organization [facility] Address [address] [place] [address] Care Team Providers Care Slide Machine Tender Name Role Phone Priya Cameron APRN, CNP Primary Care Provide r Allergies No known active allergies Medications pramipexole (MIRAPEX) 0.125 MG tablet Take 0.375 mg by mouth At Bedtime 09/16/2020 Active methocarbamol (ROBAXIN) 500 MG tabletIndicatio ns:S/P lumbar fusion Take 1 tablet (500 mg) by mouth 3 times daily as needed for muscle spasms 40 tablet 1 03/13/2021 Active neomycin-polymy peng-hydrocortis one (CORTISPORIN) 3.5-68109-3 otic suspensionIndic ations:Infectiv e otitis externa, left [...] on file 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 Gender Identity Not on file Sexual Orientation [...] (146 lb 4.8 oz) 03/13/2021 11:14 AM METEOROLOGICAL AIDE Height 167.6 cm (5' 6) 03/13/2021 11:14 AM METEOROLOGICAL AIDE Body Mass Index 23.61 03/13/2021 11:14 AM METEOROLOGICAL AIDE Plan of Treatment Health Maintenance Due Date Last Done Comments ADVANCE CARE PLANNING 1965 ANNUAL REVIEW OF HM ORDERS 1965 CT COLONOGRAPHY 1965 FIT 1965 FLEX SIG 1966 COLONOSCOPY 1976 HIV SCREENING 1981 HEPATITIS C SCREENING 1984 LIPID 2006 PNEUMOCOCCAL VACCINE 50+ YEARS (2 of 2 - PCV) 08/15/2014 08/15/2013 LUNG CANCER SCREENING 2016 YEARLY PREVENTIVE VISIT 07/12/2018 07/12/2017 HEPATITIS B VACCINE (3 of 3 - 19+ 3-dose series) 07/21/2022 05/26/2022, 08/15/2013, 08/15/2013 DTAP/TDAP/TD VACCINE (2 - Td or Tdap) 2023 08/15/2013, 10/02/2002 COVID-19 VACCINE ( season) 2023 02/04/2021, 06/11/2020, 05/21/2020 COLORECTAL CANCER SCREENING 01/29/2024 sDNA (Cologuard) 01/29/2024 01/28/2021 PHQ-2 (once per calendar year) 2024 DIABETES SCREENING 03/14/2024 03/14/2021, 0 03/14/2021, 03/14/2021, Additional history exists INFLUENZA VACCINE (Season Ended) 2024 12/10/2017, 12/01/2012, 11/24/2011, Additional history exists ZOSTER VACCINE Completed 04/14/2019, 07/12/2017 HPV VACCINE Aged Out No longer eligi ble based on patient's age to complete this topic MENINGITIS VACCINE Aged Out No longer eligible based on patient's age to complete this topic Medical Devices Implanted Type Area Lead Quality Technician Device Identifier Shelf Expiration Date Model / Serial / Lot Wapello Dbf With Delivery Tubes Implanted:Qty: 1 on 03/13/2021 by Jose Luis Coto MD at [facility] N/A: Spine Lumbar [employer] 07/12/2022 [id number] / [id number] / Wapello Dbf Inject Implanted:Qty: 1 on 03/13/2021 by Jose Luis Coto MD at [facility] N/A: Spine Lumbar [employer] 01/30/2023 [id number] / [id number] / Interbody Cage, Pl, Short Size 7mm Implanted:Qty: 1 on 03/13/2021 by Jose Luis Coto MD at [facility] N/A: Spine Lumbar 01/15/2029 [id number] / / [id number] 7.5 X 40 Voyager Ats Screw Implanted:Qty: 2 on 03/13/2021 by Jose Luis Coto MD at [facility] N/A: Spine Lumbar [employer] [id number] / / [id number] 7.5 X 35 Voyager Ats Screw Implanted:Qty: 2 on 03/13/2021 by Jose Luis Coto MD at [facility] N/A: Spine Lumbar [employer] [id number] / / [id number] Voyager Set Screw Implanted:Qty: 4 on 03/13/2021 by Jose Luis Coto MD at [facility] N/A: Spine Lumbar [employer] [id number] / / [id number] - [id number] 35mm Capped Joel Implanted:Qty: 1 on 03/13/2021 by Jose Luis Coto MD at [facility] N/A: Spine Lumbar [employer] [id number] / / [id number] - [id number] Procedures Procedure Name Priority Date/Time Associated Diagnosis Comments GLUCOSE BY METER Routine 03/14/2021 1:48 AM METEOROLOGICAL AIDE from Last 3 Months or Most Recently Relevant to Health Maintenance Results * (ABNORMAL) Glucose by meter (03/14/2021 1:48 AM METEOROLOGICAL AIDE) GLUCOSE BY METER POCT 126(H) 70 - 99 mg/dL 03/14/2021 1:55 AM METEOROLOGICAL AIDE [facility] Comment:Dr/RN Notified Blood BLOOD SPECIMEN / Unknown 03/14/2021 1:48 AM METEOROLOGICAL AIDE 03/14/2021 1:55 AM METEOROLOGICAL AIDE us Jose Luis Coto MD LAB - BEAKER POCT Fi nal Result LABORATORY POC [facility] [address] [facility] Lab (1st floor, no room number) [place] [address], [facility] [phone] from Last 3 Months or Most Recently Relevant to Health Maintenance Insurance BLUE PLUS Advance Directives For more information, please contact: [phone] * Full Code (Latest Code Status on File) Date Activated Date Inactivated Comments 03/13/2021 7:29 PM 03/14/2021 7:13 PM All basic an d advanced life-sustaining interventions are performed as appropriate Question Answer Comments Code status determined by: Discussion with lillian nt/ legal decision maker Care Teams Slide Machine Tender Relationship Specialty Start Date End Date Priya Cameron APRN BEAD WORKER SEWING [address] [place], [place] [address] PCP - General Internal Medicine 03/03/21
--- OUTSIDE RECORDS SUMMARY | 2024-09-12 23:06 | XMS_ITS | Clinical Summary ---
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 Gender Identity Not on file Sexual Orientation [...] (for lung CA) ag e 50-80 2016 Hepatitis B series for 19+ ( 3 of 3 - 19+ 3-dose series) 07/21/2022 05/26/2022, 08/15/2013 COVID-19 vaccine series ( season) 2023 02/04/2021, 06/11/2020, 05/21/2020 Influenza Vaccine (#1) 2024 8, 12/01/2012, 11/24/2011, Additional history exists BMI (ht and wt on same day) for age 18+ 05/29/2025 05/29/2024, 03/25/2023 Depression screening for age 12+ 05/29/2025 05/29/2024, 03/25/2023, 03/25/2023, Additional history exists Lipids for age 45-75 05/29/2029 05/29/2024, 03/25/19 24 Colonoscopy through age 75 05/19/2033 05/20/2023 Tetanus booster 05/29/2034 05/29/2024, 07/30, 10/02/2002 Zoster (shingles) series for age 50+ Completed 04/14/2019, 07/12/2017 Procedures Procedure Name Priority Date/Time Associated Diagnosis Comments LIPID PANEL Routine 05/29/2024 11:59 AM CDT Hyperlipidemia, mixed SCAN-COLONOSCOPY 05/20/2023 10:0 0 AM CDT from Last 3 Months or Most Recently Relevant to Health Maintenance Results * (ABNORMAL) LIPID PANEL (05/29/2024 11:59 AM CDT) CHOLESTEROL, TOTAL 265(H) <200 mg/dL [facility] HDL CHOLESTEROL 55 > OR = 40 mg/dL [facility] TRIGLYCERIDES 97 <150 mg/dL [facility] LDL-CHOLESTEROL 188(H) mg/dL (calc) [facility] Comment: Reference range: <100 Desirable range <100 mg/dL for primary prevention; <70 mg/dL for patients with CHD or diabetic patients with > or = 2 CHD risk factors. LDL-C is now calculated using the Zen-Jimenez calculation, which is a validated novel method providing better accuracy than the Friedewald equation in the estimation of LDL-C. Zen SS et al. PANCHO. 2013;310(19): 2551-5478 (http://education.Planet Biotechnology/faq/LFR033) CHOL/HDLC RATIO 4.8 <5.0 (calc) [facility] NON HDL CHOLESTEROL 210(H) <130 mg/dL (calc) [facility] Fort[facility] Comment: For patients with diabetes plus 1 major ASCVD risk factor, treating to a non-HDL-C goal of <100 mg/dL (LDL-C of <70 mg/dL) is considered a therapeutic option. Blood BLOOD SPECIMEN / Unknown 05/29/2024 11:59 AM CDT 05/29/2024 12:00 PM CDT us Charles Jimenez MD CHEMISTRY Final Result [employer] [facility] [address] [place] [address], [facility] [address] [place] [address] * SCAN-COLONOSCOPY (05/20/2023 10:00 AM CDT) Narrative Procedure Note Maria GuadalupeBeto Cantu MD - 05/20/2023 9:16 AM CDT [facility] [address] [facility], [address], [place] [address] Patient Name: Morgan Rodriguez Gender: Male Exam Date: 05/20/2023 Visit Number: [id number] Age: 57 Years Date of : 1965 Attending MD: Beto Royal MD Medical Record#: [id number] Procedure: Colonoscopy Indications: Colorectal cancer screening Referring [...] of the colorectum is defined by the [place] College[employer] Gastro[employer]ology (ACG) as an adenoma that is 1 cm or more in size,contains an appreciable villous component, or has high grade dysplasia(Zackery BARROSO; Polyp Guideline: Diagnosis, Treatment, and Surveillance forPatients with Colorectal Polyps. Am J [id number];95(11):3648-6715). This polyp qualifies as such. Patients withadvanced adenomas are at increased risk for synchronous and metachronousadditional advanced adenomas. Appropriate follow-up is suggested. MICROSCOPIC A: Performed B: Performed C: Performed D: Performed E: Performed Electronically signed by: Guillermo Levi MD Interpreted at [facility], [address] [place] [address] Orders Instruction(s)/Education: Instruction/Education Timeframe Assessment Colon Cancer [...] Charles Jimenez MD cc: Charles Jimenez MD Beto Lerma MD OTHER Final Resu lt from Last 3 Months or Most Recently Relevant to Health Maintenance Insurance [facility] ADVANTAGE Care Teams Body And Fender Mechanic Apprentice Relationship Specialty [place] [address] [place] [address] PCP - General Family Practice 03/25/23
[2024-09-12 23:09] VITALS: BP 144/109; PULSE 54; RESP 16; TEMP 36.2; O2SAT 99; BMI 22.6
--- NOTE | 2024-09-12 23:15 | ED.GENADULT ---
HPI - General Adult General Chief complaint: Flank Pain Stated complaint: Possible kidney stone Time Seen by Provider: 09/12/24 23:14 History of Present Illness HPI narrative: pt here with left flank pain since 2099, nausea and vomiting, history of stones 59-year-old man presenting to the emergency department with concern of Abrupt onset of sharp left flank area pain about 2 hours prior to arrival. Does have a documented history of kidney stones, ureteral stones last seen in this facility 2 months ago with imaging. This was right-sided symptoms at that time. I do review prior imaging and can see about a 2-3 mm stone within the left kidney. He has not had any dysuria or noted hematuria. No fever. Has vomited. Related Data Home Medications ?Medication ?Instructions ?Recorded ?Confirmed pramipexole 0.125 mg tablet 0.25 - 0.375 mg PO QPM 07/12/24 07/12/24 rosuvastatin 40 mg tablet 40 mg PO QPM 07/12/24 07/12/24 Previous Rx's ?Medication ?Instructions ?Recorded tamsulosin 0.4 mg capsule (Flomax) 0.4 mg PO DAILY #10 caps 05/19/24 ketorolac 10 mg tablet 10 mg PO Q6H PRN pain #20 tabs 07/12/24 ondansetron 4 mg disintegrating 4 mg PO Q8H PRN nausea and 07/12/24 tablet vomiting #5 tabs tamsulosin 0.4 mg capsule (Flomax) 0.4 mg PO DAILY #15 caps 09/13/24 Allergies Allergy/AdvReac Type Severity Reaction Status Date / Time tamsulosin Allergy Unknown Verified 07/12/24 05:49 Review of Systems Status of ROS: Reports: 6 or more systems reviewed and unremarkable except as noted in History and below [facility] Social History Smoking Status: Never smoker Do you use any of these nicotine containing products: None How often do you have a drink containing alcohol: never How often do you have six or more drinks on one occasion: Never AUDIT-C Alcohol total score: 0 Non-prescribed substance use: denies use service: No Exam Narrative: Exam Narrative: Slim man. Pleasant. Moaning in apparent discomfort. Skin is warm and dry. No extremity edema. Is well-perfused. Heart in regular to slower rate in regular rhythm. Breathing easily. Abdomen is soft. Tender in the left low abdomen and to percussion in the left flank. Const: Vital Signs, click to edit/add: Vital Signs - 24 hr 09/12/24 23:09 Temperature 97.2 F L Pulse Rate [Right Pulse Oximeter] 54 L Respiratory Rate 16 Blood Pressure [Ri ght Upper Arm] 144/109 H Pulse Oximetry 99 Oxygen Delivery Me thod Room Air Documenting provider has reviewed patient's vital signs: yes Course Vital Signs Vital signs: Initial Vital Signs Temperature 97.2 F L 09/12/24 23:09 Temperature Source Temporal Artery Scan 09/12/24 23:09 Pulse Rate 54 L 09/12/24 23:09 Respiratory Rate 16 09/12/24 23:09 Blood Pressure 144/109 H 09/12/24 23:09 Blood Pressure Mean 120 H 09/12/24 23:09 Blood Pressure Position Sitting 09/12/24 23:09 Pulse Oximetry 99 09/12/24 23:09 Oxygen Delivery Method Room Air 09/12/24 23:09 Vital Signs Temperature 97.2 F L 09/12/24 23:09 Pulse Rate 54 L 09/12/24 23:09 Respiratory Rate 16 09/12/24 23:09 Blood Pressure 144/109 H 09/12/24 23:09 Pulse Oximetry 99 09/12/24 23:09 Oxygen Delivery Method Room Air 09/12/24 23:09 Temperature 97.2 F L 09/12/24 23:09 Pulse Rate 54 L 09/12/24 23:09 Respiratory Rate 16 09/12/24 23:09 Blood Pressure 144/109 H 09/12/24 23:09 Pulse Oximetry 99 09/12/24 23:09 Oxygen Delivery Method Room Air 09/12/24 23:09 Medications Administered Medications: Discontinued Medications Generic Name Dose Route Start Last Admin Trade Name Freq PRN Reason Stop Dose Admin Sodium Chloride 1,000 mls @ 1,000 mls/hr 09/12/24 23:15 09/12/24 23:30 0.9 % Sodium Chloride 1000 Ml IV 09/13/24 00:14 1,000 mls/hr .Q1H ONE Administration Ketorolac Tromethamine 30 mg 09/12/24 23:15 09/12/24 23:23 Ketorolac 30 Mg/Ml Inj IVP 09/12/24 23:16 30 mg ONCE ONE Administration Morphine Sulfate 4 mg 09/12/24 23:15 09/12/24 23:24 Morphine 4 Mg/Ml Inj IVP 09/12/24 23:16 4 mg ONCE ONE Administration Ondansetron HCl 4 mg 09/12/24 23:15 09/12/24 23:22 Ondansetron 2 Mg/Ml Inj IVP 09/12/24 23:16 4 mg ONCE ONE Administration Medical Decision Making MDM Narrative Medical decision making narrative: Considering history it is likely that he is experiencing ureteral spasm from ureteral stone. Symptoms are consistent. Will treat accordingly but check labs. May not need repeat imaging as recent imaging was done and I can see a likely source of his pain. Doubtful urinary tract infection. No identifiable risk factors for vascular disruption. Symptoms do not appear to be musculoskeletal. Initiating IV fluids with morphine ketorolac and Zofran. On reassessment is markedly improved with pain now 3. Only discomfort now really with residual peripheral neuropathy. Labs are reassuring. Not collect urinalysis but I am not thinking that this needs to be done as brief duration of symptoms. See patient discharge plan for further discussion This tamsulosin also known as Flomax, can be helpful for ureteral spasm. If can tolerate this tamsulosin, consider taking daily until confident of stone passage. Strain your urine over this next week. Prescribing Percocet from [facility]. I understand you have Zofran at home for nausea. Will send in a prescription of Flomax if you want to continue this to your pharmacy. Can take up to 800 mg per dose of ibuprofen. Be seen for pain lasting 5 days, intractable pain, intractable vomiting, fever. Medical Records Medical records reviewed: Yes I reviewed the patient's medical records Lab Data Lab results reviewed: Yes I reviewed the patient's lab results Labs: Lab Results 09/12/24 Range/Units 22:21 WBC 9.20 (4.50-11.00) K/uL RBC 4.65 (4.30-5.90) m/uL Hgb 14.5 (13.5-17.5) gm/dL Hct 43.2 (37.0-53.0) % MCV 93 (80-100) fL MCH 31 (26-34) pg MCHC 34 (32-36) gm/dL RDW Coeff of Disha 12.8 (11.5-15.5) % Plt Count 168 (140-440) K/uL Neut % (Auto) 53.6 (42.0-72.0) % Lymph % (Auto) 30.9 (20-44) % Daggett % (Auto) 11.6 H (0.0-11.0) % Eos % (Auto) 2.8 (0.0-7.0) % Baso % (Auto) 0.4 (0.0-3.0) % Neut # (Auto) 4.93 (1.7-7.0) K/uL Lymph # (Auto) 2.84 (0.90-2.90) K/uL Daggett # (Auto) 1.10 H (0.00-0.90) K/UL Eos # (Auto) 0.26 (0.00-0.50) K/uL Baso # (Auto) 0.04 (0.00-0.30) K/uL Abs Immat Gran (auto) 0.06 (0.00-0.30) K/uL Imm/Tot Granulo (auto) 0.7 % Sodium 140 (135-149) mmol/L Potassium 3.3 L (3.6-5.1) mmol/L Chloride 105 (96-114) mmol/L Carbon Dioxide 27 (20-32) mmol/L Anion Gap 8 (7-15) mEq/L BUN 22 (7-30) mg/dL Creatinine 1.3 (0.5-1.5) mg/dL Estimated Creat Clear 55.63 Estimated GFR 64 ml/min Glucose 117 H (60-115) mg/dL Calcium 9.0 (8.4-10.6) mg/dL Discharge Plan Discharge Clinical Impression: Left ureteral calculus, Ureteral colic, Nephrolithiasis Patient Disposition: Home w/ Parent or Adult Condition: Improved Additional Instructions: This tamsulosin also known as Flomax, can be helpful for ureteral spasm. If can tolerate this tamsulosin, consider taking daily until confident of stone passage. Strain your urine over this next week. Prescribing Percocet from [facility]. I understand you have Zofran at home for nausea. Will send in a prescription of Flomax if you want to continue this to your pharmacy. Can take up to 800 mg per dose of ibuprofen. Be seen for pain lasting 5 days, intractable pain, intractable vomiting, fever. Prescriptions: New tamsulosin [Flomax] 0.4 mg capsule 0.4 mg PO DAILY Qty: 15 0RF No Action tamsulosin [Flomax] 0.4 mg capsule 0.4 mg PO DAILY Qty: 10 2RF pramipexole 0.125 mg tablet 0.25 - 0.375 mg PO QPM rosuvastatin 40 mg tablet 40 mg PO QPM ketorolac 10 mg tablet 10 mg PO Q6H PRN (Reason: pain) Qty: 20 1RF Rx Instructions: maximum total duration of 5 days from all oral, intranasal, or parenteral formulations ondansetron 4 mg tablet,disintegrating 4 mg PO Q8H PRN (Reason: nausea and vomiting) Qty: 5 0RF Follow Up/Referrals: Provider,Not a Local [Primary Care Provider, Family Practice] Stand Alone [facility]: [facility] Info Inst[facility]
[2024-09-12] MEDS: ONDANSETRON 2 MG/ML inj 4 MG IVP (23:22)
[2024-09-12] MEDS: MORPHINE 4 MG/ML INJ IVP (23:24)
[2024-09-12 23:37] LABS: Hematocrit 43.2 % (37.0-53.0); Hemoglobin* 14.5 gm/dL (13.5-17.5); Immature Granulocytes Abs Auto 0.06 K/uL (0.00-0.30); Immature Granulocytes Pct Auto 0.7 %; Lymphocytes Absolute Auto 2.84 K/uL (0.90-2.90); Mean Corpuscular HGB Conc 34 gm/dL (32-36); Mean Corpuscular Hemoglobin 31 pg (26-34); Mean Corpuscular Volume 93 fL (80-100); RDW Coefficient of Variation % 12.8 % (11.5-15.5); Red Blood Count 4.65 m/uL (4.30-5.90); White Blood Count* 9.20 K/uL (4.50-11.00)
[2024-09-12 23:38] LABS: Chloride* 105 mmol/L (96-114); Potassium* 3.3 mmol/L (3.6-5.1); Sodium* 140 mmol/L (135-149)
[2024-09-12 23:41] LABS: Blood Urea Nitrogen* 22 mg/dL (7-30); Creatinine* 1.3 mg/dL (0.5-1.5); Est. Creatinine Clearance* 55.63; Estimated Glomerular Filt Rate 64 ml/min; Slide Review Reflex No
[2024-09-12 23:42] LABS: Anion Gap 8 mEq/L (7-15); Calcium* 9.0 mg/dL (8.4-10.6); Carbon Dioxide* 27 mmol/L (20-32); Glucose* 117 mg/dL (60-115)
--- NOTE | 2024-09-13 00:04 | PC.NURSE ---
pain improved to a 3 of 10 now, pt resting, at bedside
[2024-09-13 00:45] VITALS: BP 120/59; PULSE 60; RESP 14; O2SAT 98
[2024-09-13] MEDS: TAMSULOSIN HCL 0.4 MG CAPSULE PO (00:45)
== END 2024-09-13 00:45 | disposition home or self-care (01) ==
PROVIDERS: Emergency Provider Family Medicine
DX: N20.1 Calculus of ureter (principal); N20.0 Calculus of kidney
CPT/HCPCS: 36415; 80048; 81001; 85025; 96361; 96374; 96375; 99284; A9270; J1885; J2270; J2405; J7030

== ENCOUNTER 2025-01-29 17:56 | Emergency (ER) | payer BC, SELFPAY ==
--- OUTSIDE RECORDS SUMMARY | 2025-01-29 17:59 | XMS_ITS | Clinical Summary ---
Author Organization [facility] Address [address] [place] [address] Care Team Providers Care Attending Urologist Name Role Phone Priya Cameron APRN, CNP Primary Care Provide r Allergies No known active allergies Medications pramipexole (MIRAPEX) 0.125 MG tablet Take 0.375 mg by mouth At Bedtime 09/16/2020 Active methocarbamol (ROBAXIN) 500 MG tabletIndicatio ns:S/P lumbar fusion Take 1 tablet (500 mg) by mouth 3 times daily as needed for muscle spasms 40 tablet 1 03/13/2021 Active neomycin-polymy peng-hydrocortis one (CORTISPORIN) 3.5-23361-5 otic suspensionIndic ations:Infectiv e otitis externa, left [...] on file Legal Sex Male 12:29 PM RESIDENT ADVISOR Gender Identity Not on file Sexual Orientation [...] (146 lb 4.8 oz) 03/13/2021 11:14 AM RESIDENT ADVISOR Height 167.6 cm (5' 6) 03/13/2021 11:14 AM RESIDENT ADVISOR Body Mass Index 23.61 03/13/2021 11:14 AM RESIDENT ADVISOR Plan of Treatment Health Maintenance Due Date Last Done Comments ADVANCE CARE PLANNING 1965 ANNUAL REVIEW OF HM ORDERS 1965 CT COLONOGRAPHY 1965 FIT 1965 FLEX SIG 1966 COLONOSCOPY 1976 HIV SCREENING 1981 HEPATITIS C SCREENING 1984 LIPID 2006 LUNG CANCER SCREENING 2016 PNEUMOCOCCAL VACCINE 50+ YEARS (2 of 2 - PCV) 2016 08/15/2013 YEARLY PREVENTIVE VISIT 07/12/2018 07/12/2017 HEPATITIS B VACCINE (3 of 3 - 19+ 3-dose series) 07/21/2022 05/26/2022, 08/15/2013, 08/15/2013 DTAP/TDAP/TD VACCINE (2 - Td or Tdap) 2023 08/15/2013, 10/02/2002 COLORECTAL CANCER SCREENING 01/29/2024 sDNA (Cologuard) 01/29/2024 01/28/2021 PHQ-2 (once per calendar year) 2024 DIABETES SCREENING 03/14/2024 03/14/2021, 0 03/14/2021, 03/14/2021, Additional history exists COVID-19 VACCINE (2024- season) 2024 02/04/2021, 06/11/2020, 05/21/2020 INFLUENZA VACCINE (#1) 2024 8, 12/01/2012, 11/24/2011, Additional history exists ZOSTER VACCINE Completed 04/14/2019, 07/12/2017 HPV VACCINE (No Doses Required) Completed MENINGITIS VACCINE Aged Out No longer eligible based on patient's age to complete this topic Medical Devices Implanted Type Area Loom Mechanic Device Identifier Shelf Expiration Date Model / Serial / Lot [place] Dbf With Delivery Tubes Implanted:Qty: 1 on 03/13/2021 by Jose Luis Coto MD at [facility] N/A: Spine Lumbar [employer] 07/12/2022 [id number] / [id number] / Pete Dbf Inject Implanted:Qty: 1 on 03/13/2021 by Jose Luis Coto MD at [facility] N/A: Spine Lumbar [employer] 01/30/2023 [id number] / [id number] / Interbody Cage, Pl, Short Size 7mm Implanted:Qty: 1 on 03/13/2021 by Jose Luis Coto MD at [facility] N/A: Spine Lumbar 01/15/2029 [id number] / / [id number] 7.5 X 40 Voyager Ats Screw Implanted:Qty: 2 on 03/13/2021 by Jose Luis Coto MD at [facility] N/A: Spine Lumbar [employer] [id number] / / 800 - [id number] 7.5 X 35 Voyager Ats Screw Implanted:Qty: 2 on 03/13/2021 by Jose Luis Coto MD at [facility] N/A: Spine Lumbar [employer] [id number] / / 800 - [id number] Voyager Set Screw Implanted:Qty: 4 on 03/13/2021 by Jose Luis Coto MD at [facility] N/A: Spine Lumbar [employer] [id number] / / 800 - [id number] 35mm Capped Joel Implanted:Qty: 1 on 03/13/2021 by Jose Luis Coto MD at [facility] N/A: Spine Lumbar [employer] [id number] / / 800 - [id number] Procedures Procedure Name Priority Date/Time Associated Diagnosis Comments GLUCOSE BY METER Routine 03/14/2021 1:48 AM RESIDENT ADVISOR from Last 3 Months or Most Recently Relevant to Health Maintenance Results * (ABNORMAL) Glucose by meter (03/14/2021 1:48 AM RESIDENT ADVISOR) GLUCOSE BY METER POCT 126(H) 70 - 99 mg/dL 03/14/2021 1:55 AM RESIDENT ADVISOR [facility] Comment:Dr/RN Notified Blood BLOOD SPECIMEN / Unknown 03/14/2021 1:48 AM RESIDENT ADVISOR 03/14/2021 1:55 AM RESIDENT ADVISOR us Jose Luis Coto MD LAB - BEAKER POCT Fi nal Result [facility] [address] (1st floor, no room number) [place] [address], [facility] [phone] from Last 3 Months or Most Recently Relevant to Health Maintenance Insurance PLUS Advance Directives For more information, please contact: [phone] * Full Code (Latest Code Status on File) Date Activated Date Inactivated Comments 03/13/2021 7:29 PM 03/14/2021 7:13 PM All basic an d advanced life-sustaining interventions are performed as appropriate Question Answer Comments Code status determined by: Discussion with lillian nt/ legal decision maker Care Teams Attending Urologist Relationship Specialty Start Date End Date Priya Cameron APRN COFFEE SAMPLER [address] [id number] PCP - General Internal Medicine 03/03/21
--- OUTSIDE RECORDS SUMMARY | 2025-01-29 17:59 | XMS_ITS | Clinical Summary ---
Author Organization [facility] Address [address] [place] [id number] Care Team Providers Care Rn Hospice Name Role Phone Charles Jimenez MD Primary [...] 6 months. 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 Gender Identity Not on file Sexual Orientation [...] series) 07/21/2022 05/26/2022, 08/15/2013 COVID-19 vaccine series (2024- season) 2024 02/04/2021, 06/11/2020, 05/21/2020 Influenza Vaccine (#1) 2024 8, 12/01/2012, 11/24/2011, Additional history exists BMI (ht and wt on same day) for age 18+ 05/29/2025 05/29/2024, 03/25/2023 Depression screening for age 12+ 05/29/2025 05/29/2024, 03/25/2023, 03/25/2023, Additional history exists Lipids for age 45-75 05/29/2029 05/29/2024, 03/25/19 24 Colonoscopy through age 75 05/19/2033 05/20/2023 Tetanus booster 05/29/2034 05/29/2024, 07/30, 10/02/2002 RSV vaccine for adults or (1 - 1-dose 75+ series) 2041 Zoster (shingles) series for age 50+ Completed 04/14/2019, 07/12/2017 Procedures Procedure Name Priority Date/Time Associated Diagnosis Comments LIPID PANEL Routine 05/29/2024 11:59 AM CDT Hyperlipidemia, mixed SCAN-COLONOSCOPY 05/20/2023 10:0 0 AM CDT from Last 3 Months or Most Recently Relevant to Health Maintenance Results * (ABNORMAL) LIPID PANEL (05/29/2024 11:59 AM CDT) CHOLESTEROL, TOTAL 265(H) <200 mg/dL [facility] HDL CHOLESTEROL 55 > OR = 40 mg/dL [facility] TRIGLYCERIDES 97 <150 mg/dL [facility] LDL-CHOLESTEROL 188(H) mg/dL (calc) [facility] Comment: Reference range: <100 Desirable range <100 mg/dL for primary prevention; <70 mg/dL for patients with CHD or diabetic patients with > or = 2 CHD risk factors. LDL-C is now calculated using the Zen-Jimenez calculation, which is a validated novel method providing better accuracy than the Friedewald equation in the estimation of LDL-C. Zen RODGERS et al. PANCHO. 2013;310(19): 3655-4861 (http://education.[employer]/faq/FDH466) CHOL/HDLC RATIO 4.8 <5.0 (calc) [facility] NON HDL CHOLESTEROL 210(H) <130 mg/dL (calc) [facility] Comment: For patients with diabetes plus 1 major ASCVD risk factor, treating to a non-HDL-C goal of <100 mg/dL (LDL-C of <70 mg/dL) is considered a therapeutic option. Blood BLOOD SPECIMEN / Unknown 05/29/2024 11:59 AM CDT 05/29/2024 12:00 PM CDT Charles Jimenez MD CHEMISTRY Final Result [facility] [address] [place] [address], [facility] [address] [place] [address] * SCAN-COLONOSCOPY (05/20/2023 10:00 AM CDT) Narrative Procedure Note Maria GuadalupeBeto Cantu MD - 05/20/2023 9:16 AM CDT [facility] [address], [address], [place] [address] Patient Name: Morgan Rodriguez Gender: Male Exam Date: 05/20/2023 Visit Number: [id number] Age: 57 Years Date of : 1965 Attending MD: Beto Royal MD Medical Record#: [id number] Procedure: Colonoscopy Indications: Colorectal cancer screening Referring MD: Charles Jimenez MD Primary MD: Charles Jimenez MD Medications: Admitting Medications: 0.9% Normal Saline at TK Intra Procedure Medications: Patient received monitored anesthesia [...] of the colorectum is defined by the [employer] (ACG) as an adenoma that is 1 cm or more in size,contains an appreciable villous component, or has high grade dysplasia(Zackery JH; Polyp Guideline: Diagnosis, Treatment, and Surveillance forPatients with Colorectal Polyps. Am J [id number];95(11):4021-9480). This polyp qualifies as such. Patients withadvanced adenomas are at increased risk for synchronous and metachronousadditional advanced adenomas. Appropriate follow-up is suggested. MICROSCOPIC A: Performed B: Performed C: Performed D: Performed E: Performed Electronically signed by: Guillermo Levi MD Interpreted at [facility], [address] [place] [address] Orders Instruction(s)/Education: Instruction/Education Timeframe Assessment Colon Cancer [...] Recently Relevant to Health Maintenance Insurance [employer] [place] [employer] Care Teams Rn Hospice Relationship Specialty [place] [address] [place] [address] PCP - General Family Practice 03/25/23
[2025-01-29 18:24] VITALS: BP 110/62; PULSE 72; RESP 18; TEMP 36.6; O2SAT 99; BMI 22.6
--- NOTE | 2025-01-29 18:33 | ED.GENADULT ---
HPI - General Adult General Time Seen by Provider: 18:33 Date Seen: 01/29/25 Chief complaint: Flank Pain Stated complaint: possible kidney stones Time Seen by Provider: 01/29/25 18:17 Source: patient and RN notes reviewed Mode of arrival: ambulatory Limitations: no limitations History of Present Illness HPI narrative: Morgan is a very pleasant 59-year-old gentleman with history of hyperlipidemia, kidney stones who comes to the emergency room after the sudden onset of left flank pain approximately 1400 hours. Patient was noted to have also experienced nausea, feelings of being hot and cold and inability to get comfortable. He notes feeling well over the past few days and has not had any dysuria or hematuria. Has not taken anything for medication at this point. Pain seems to stay in his left flank. Related Data Home Medications ?Medication ?Instructions ?Recorded ?Confirmed pramipexole 0.125 mg tablet 0.25 - 0.375 mg PO QPM 07/12/24 01/29/25 rosuvastatin 40 mg tablet 40 mg PO QPM 07/12/24 07/12/24 Previous Rx's ?Medication ?Instructions ?Recorded hydrocodone 5 mg-acetaminophen 325 1 tab PO Q4-6H PRN pain #8 tabs 01/29/25 mg tablet Allergies Allergy/AdvReac Type Severity Reaction Status Date / Time tamsulosin Allergy Unknown Verified 07/12/24 05:49 [facility] Social History Smoking Status: Never smoker Do you use any of these nicotine containing products: None How often do you have a drink containing alcohol: never How often do you have six or more drinks on one occasion: Never AUDIT-C Alcohol total score: 0 Non-prescribed substance use: denies use service: No Exam Narrative: Exam Narrative: Patient is kneeling on the bed with his head in the pillow. He is moaning. Was able to speak to me. Unable to do proper exam at this time. Breathing without difficulty. Follow-up exam post medications: Alert and oriented. No respiratory distress. External ears eyes nose clear. Heart with regular rate and rhythm and lungs clear to auscultation. Abdomen soft nontender. No CVA tenderness with percussion. Patient is standing with a cane. He has a history of peripheral neuropathy. He is moving about the room. Const: Vital Signs, click to edit/add: Vital Signs - 24 hr 01/29/25 18:24 01/29/25 19:29 Temperature 97.8 F Pulse Rate 73 Pulse Rate [Pulse Oximeter] 72 Respiratory Rate 18 16 Blood Pressure 121/71 Blood Pressure [Ri ght Upper Arm] 110/62 Pulse Oximetry 99 100 Oxygen Delivery Me thod Room Air Documenting provider has reviewed patient's vital signs: yes Course Course ED Course: Patient has significant discomfort. Highly suggestive of kidney stone but cannot rule out muscular spasm, pyelonephritis, retroperitoneal bleed, colitis. At this time given his pain level will place an IV use Toradol 15 morphine 4 mg Zofran 4 mg for pain control. Would also obtain CBC and basic panel as well as urinalysis. I feel confident that this most likely is a stone and thus will send him to CT for a noncontrast abdomen and pelvis. Reevaluation(s) Reevaluation #1: Patient did have moderate pain relief with morphine Zofran and Toradol. Pain seems to be escalating and thus have ordered Dilaudid 0.5 mg IV. Cbtlda-dm-gswggzo much improved after Dilaudid. Interacting with his son who is present with him this evening. Vital Signs Vital signs: Initial Vital Signs Temperature 97.8 F 01/29/25 18:24 Temperature Source Temporal Artery Scan 01/29/25 18:24 Pulse Rate 72 01/29/25 18:24 Respiratory Rate 18 01/29/25 18:24 Blood Pressure 110/62 01/29/25 18:24 Blood Pressure Mean 78 01/29/25 18:24 Blood Pressure Position Sitting 01/29/25 18:24 Pulse Oximetry 99 01/29/25 18:24 Oxygen Delivery Method Room Air 01/29/25 18:24 Vital Signs Temperature 97.8 F 01/29/25 18:24 Pulse Rate 72 01/29/25 18:24 Respiratory Rate 18 01/29/25 18:24 Blood Pressure 110/62 01/29/25 18:24 Pulse Oximetry 99 01/29/25 18:24 Oxygen Delivery Method Room Air 01/29/25 18:24 Temperature 97.8 F 01/29/25 18:24 Pulse Rate 73 01/29/25 19:29 Respiratory Rate 16 01/29/25 19:29 Blood Pressure 121/71 01/29/25 19:29 Pulse Oximetry 100 01/29/25 19:29 Oxygen Delivery Method Room Air 01/29/25 18:24 Medications Administered Medications: Generic Name Dose Route Start Last Admin Trade Name Theresa PRN Reason Stop Dose Admin Hydrocodone Bitart/Acetaminophen 2 tab 01/29/25 20:53 01/29/25 21:03 Hydrocodone-Acetamin 5-325 Mg 1 Tab PO 01/29/25 20:54 2 tab ONCE ONE Administration Discontinued Medications Generic Name Dose Route Start Last Admin Trade Name Theresa PRN Reason Stop Dose Admin Hydromorphone HCl 0.5 mg 01/29/25 19:42 01/29/25 19:46 Hydromorphone 0.5 Mg/0.5 Ml Inj IVP 01/29/25 19:43 0.5 mg ONCE ONE Administration Sodium Chloride 500 mls @ 500 mls/hr 01/29/25 18:39 01/29/25 19:58 0.9 % Sodium Chloride 500 Ml IV 01/29/25 19:38 Infused .Q1H ELLE Infusion Ketorolac Tromethamine 15 mg 01/29/25 18:36 01/29/25 18:58 Ketorolac 15 Mg/Ml Inj IVP 01/29/25 18:37 15 mg ONCE ONE Administration Morphine Sulfate 4 mg 01/29/25 18:36 01/29/25 18:58 Morphine 4 Mg/Ml Inj IVP 01/29/25 18:37 4 mg ONCE ONE Administration Ondansetron HCl 4 mg 01/29/25 18:36 01/29/25 18:58 Ondansetron 2 Mg/Ml Inj IVP 01/29/25 18:37 4 mg ONCE ONE Administration Medical Decision Making [facility] Narrative Medical decision making narrative: 1. Nephrolithiasis-3 mm stone at the left UVJ patient is instructed to strain his urine and take the stone in for evaluation. This is the 6th time he has had a stone. In the past there have been times where he did not need to come in as it passed fairly quickly. He has not had to have any urological intervention in the past either. At 3 mm this is most likely to pass without intervention. However, should the stone not passed any scant have continued pain would have him follow-up with his clinic/primary MD as he may need to see Urology. No evidence of the urinary tract infection but will await urine culture. 2. Ureteral colic-patient's pain control with Toradol, morphine and Dilaudid. At home patient may use Toradol 10 mg p.o. Q 6-8 hours p.r.n. pain a total of 20 given via our [employer] meds machine. For pain not relieved by Toradol patient may use [place] 5/325 1-2 tabs p.o. q.4 hours p.r.n. pain. He should not use any other sedating medications with this medicine and should not use alcohol nor drive. States he does have a history of sleep apnea but does not use machine. I did speak of the side effect of respiratory depression. Further pain medications will need to go through his primary clinic. 3. Disposition-home at this time. Return for worsening symptoms especially fever, persistent vomiting and increasing pain not relieved by medications. Did speak to patient about the use of Flomax but he does not like some of the side effects and so will not use that medicine tonight. Medical Records Medical records reviewed: Yes I reviewed the patient's medical records Medical records narrative: Reviewed previous visit 09/22 secondary to kidney stone. Lab Data Lab results reviewed: Yes I reviewed the patient's lab results Lab results narrative: Mild leukocytosis likely demargination noted. Chemistry panel within normal limits in creatinine is 1.4. Urinalysis but evidence of UTI. Labs: Lab Results 01/29/25 01/29/25 Range/Units 18:50 20:00 WBC 11.31 H (4.50-11.00) K/uL RBC 5.33 (4.30-5.90) m/uL Hgb 16.6 (13.5-17.5) gm/dL Hct 50.0 (37.0-53.0) % MCV 94 (80-100) fL MCH 31 (26-34) pg MCHC 33 (32-36) gm/dL RDW Coeff of Disha 12.6 (11.5-15.5) % Plt Count 168 (140-440) K/uL Neut % (Auto) 85.6 H (42.0-72.0) % Lymph % (Auto) 8.4 L (20-44) % [place] % (Auto) 4.9 (0.0-11.0) % Eos % (Auto) 0.4 (0.0-7.0) % Baso % (Auto) 0.4 (0.0-3.0) % Neut # (Auto) 9.70 H (1.7-7.0) K/uL Lymph # (Auto) 1.00 (0.90-2.90) K/uL [place] # (Auto) 0.60 (0.00-0.90) K/UL Eos # (Auto) 0.00 (0.00-0.50) K/uL Baso # (Auto) 0.00 (0.00-0.30) K/uL Abs Immat Gran (auto) 0.00 (0.00-0.30) K/uL Imm/Tot Granulo (auto) 0.3 % Sodium 140 (135-149) mmol/L Potassium 3.8 (3.6-5.1) mmol/L Chloride 101 (96-114) mmol/L Carbon Dioxide 26 (20-32) mmol/L Anion Gap 13 (7-15) mEq/L BUN 25 (7-30) mg/dL Creatinine 1.4 (0.5-1.5) mg/dL Estimated Creat Clear 51.66 Estimated GFR 58 ml/min Glucose 120 H (60-115) mg/dL Calcium 9.3 (8.4-10.6) mg/dL Urine Color Yellow (Yellow) Urine Appearance Cloudy A (Clear) Urine pH 5.5 (5.0-8.5) Ur Specific [place] >= 1.030 (1.000-1.030) Urine Protein 2+ A (Negative) Urine Glucose (UA) Negative (Negative) Urine Ketones 1+ A (Negative) Urine Blood Trace-intact A (Negative) Urine Nitrite Negative (Negative) Urine Bilirubin 1+ A (Negative) Urine Urobilinogen 0.2 (0.2-1.0) Ur Leukocyte Esterase Negative (Negative) Urine RBC 0-2 (0-2) Urine WBC 0-2 (0-5) Ur Squamous Epith Cells Moderate A (None-Few) Urine Bacteria Moderate A (None) Fine Granular Casts Few A (None) Imaging Data CT scan - abdomen: Attestation: I have reviewed the pertinent imaging results. My impression: Left hydronephrosis. Distal 4 mm stone. Radiologist's impression: Lower chest: No acute abnormality appreciated. Hepatobiliary: No significant parenchymal abnormality is appreciated. Spleen: Unremarkable. Pancreas: No acute abnormality appreciated. Adrenal glands: No acute abnormality appreciated. Kidneys: Nonobstructing bilateral stones. Mild left hydronephrosis with perinephric stranding. Bowel: No obstruction. No focal perienteric or pericolonic stranding is appreciated. Vascular: Poorly evaluated on this noncontrast examination. Calcified atherosclerosis. Lymph nodes: No gross lymphadenopathy. Peritoneum: No free air. No free fluid. : Bladder wall thickening with adjacent stranding. There is a left UVJ stone measuring 3 millimeters. Soft tissues: No acute abnormality appreciated. Bones: No acute fracture. No lytic or blastic lesion. Lumbosacral fusion. Degenerative changes of the spine and pelvis. Impression: 1. Obstructing 3 millimeter left UVJ stone with mild left hydronephrosis. 2. Additional bilateral nonobstructing renal stones present. 3. Bladder wall thickening with adjacent stranding, can be correlated for UTI/cystitis. Discharge Plan Discharge Clinical Impression: Nephrolithiasis, Colic, ureteral Patient Disposition: Home, Self-Care Condition: Improved Additional Instructions: Recommend straining urine until you see the passage of his stone. Since you have not had a stone analyzed previously it would be a good idea to take this to your regular clinic or doctor to see if it could be analyzed. Toradol is an NSAID and pain reliever much like ibuprofen. Take as needed for discomfort. In sure good fluid intake. For pain not relieved by Toradol you may use [place] also known as Vicodin. This is a combination medication of hydrocodone and Tylenol. May cause constipation, sedation and should not be used with any other sedating medications, alcohol or when driving. Zofran is an anti nausea medicine. Follow-up with your primary MD if you feel that the stone is not passing any continued to have pain. Return to the emergency room for fever, persistent vomiting, worsening symptoms and as needed. Zofran and Toradol were put in our [employer] machine in the front lobby. Unfortunately we are out of the [place] in our machine but will give you 2 tablets to take home tonight to use as needed. The remainder of the prescription will be sent to your pharmacy. Prescriptions: New hydrocodone-acetaminophen 5-325 mg tablet 1 tab PO Q4-6H PRN (Reason: pain) Qty: 8 0RF No Action pramipexole 0.125 mg tablet 0.25 - 0.375 mg PO QPM rosuvastatin 40 mg tablet 40 mg PO QPM Follow Up/Referrals: Provider,Not a Local [Primary Care Provider, Family Practice] Stand Alone Forms: [email or web address] Info Instructions
--- NOTE | 2025-01-29 18:36 | CRLHL7_ITS ---
For Patients: As a result of the Century Cures Act, medical imaging exams and procedure reports are released immediately into your electronic medical record. You may view this report before your referring provider. If you have questions, please contact your health care provider. Indication: Left flank pain Technique: Noncontrast CT through the abdomen and pelvis with multiplanar reformats. Comparison: CT abdomen pelvis performed 07/12/2024 Findings: Lower chest: No acute abnormality appreciated. Hepatobiliary: No significant parenchymal abnormality is appreciated. Spleen: Unremarkable. Pancreas: No acute abnormality appreciated. Adrenal glands: No acute abnormality appreciated. Kidneys: Nonobstructing bilateral stones. Mild left hydronephrosis with perinephric stranding. Bowel: No obstruction. No focal perienteric or pericolonic stranding is appreciated. Vascular: Poorly evaluated on this noncontrast examination. Calcified atherosclerosis. Lymph nodes: No gross lymphadenopathy. Peritoneum: No free air. No free fluid. : Bladder wall thickening with adjacent stranding. There is a left UVJ stone measuring 3 millimeters. Soft tissues: No acute abnormality appreciated. Bones: No acute fracture. No lytic or blastic lesion. Lumbosacral fusion. Degenerative changes of the spine and pelvis. Impression: 1. Obstructing 3 millimeter left UVJ stone with mild left hydronephrosis. 2. Additional bilateral nonobstructing renal stones present. 3. Bladder wall thickening with adjacent stranding, can be correlated for UTI/cystitis. Please note that all CT scans at this facility use dose modulation, iterative reconstruction, and/or weight-based dosing when appropriate to reduce radiation dose to as low as reasonably achievable. Dictated by Giovanni Wilson MD @ 01/29/2025 7:27:24 PM (Electronically Signed)
[2025-01-29] MEDS: MORPHINE 4 MG/ML INJ IVP (18:58)
[2025-01-29] MEDS: ONDANSETRON 2 MG/ML inj 4 MG IVP (18:58)
[2025-01-29 19:06] LABS: Hematocrit* 50.0 % (37.0-53.0); Hemoglobin* 16.6 gm/dL (13.5-17.5); Immature Granulocytes Pct Auto 0.3 %; Mean Corpuscular HGB Conc 33 gm/dL (32-36); Mean Corpuscular Hemoglobin 31 pg (26-34); Mean Corpuscular Volume 94 fL (80-100); RDW Coefficient of Variation % 12.6 % (11.5-15.5); Red Blood Count* 5.33 m/uL (4.30-5.90); White Blood Count* 11.31 K/uL (4.50-11.00)
[2025-01-29 19:08] LABS: Immature Granulocytes Abs Auto 0.00 K/uL (0.00-0.30); Lymphocytes Absolute Auto 1.00 K/uL (0.90-2.90); Slide Review Reflex No
[2025-01-29 19:16] LABS: Chloride* 101 mmol/L (96-114); Potassium* 3.8 mmol/L (3.6-5.1); Sodium* 140 mmol/L (135-149)
[2025-01-29 19:19] LABS: Anion Gap 13 mEq/L (7-15); Blood Urea Nitrogen* 25 mg/dL (7-30); Calcium* 9.3 mg/dL (8.4-10.6); Carbon Dioxide* 26 mmol/L (20-32); Creatinine* 1.4 mg/dL (0.5-1.5); Est. Creatinine Clearance* 51.66; Estimated Glomerular Filt Rate 58 ml/min; Glucose* 120 mg/dL (60-115)
[2025-01-29 19:29] VITALS: BP 121/71; PULSE 73; RESP 16; O2SAT 100
[2025-01-29] MEDS: 0.9 % SODIUM CHLORIDE 500 ML 500 ML IV (19:30)
[2025-01-29 20:13] LABS: Appearance Urine Cloudy (Clear)
[2025-01-29] MEDS: HYDROCODONE-ACETAMIN 5-325 MG 1 TAB 2 TAB PO (21:03)
--- NOTE | 2025-01-29 21:04 | ED.NURSE ---
2 tablets of norco sent home with emy with MD prescription and instructions due to [employer] machine not having medication. Bottle was properly labled with instructions, name and medication
== END 2025-01-29 21:22 | disposition home or self-care (01) ==
PROVIDERS: Emergency Provider Family Medicine
DX: N20.0 Calculus of kidney (principal); N23 Unspecified renal colic; Z87.442 Personal history of urinary calculi
CPT/HCPCS: 36415; 74176; 80048; 81001; 85025; 87086; 94761; 96374; 96375; 99284; A9270; J1171; J1885; J2270; J2405; J7030

== ENCOUNTER 2025-01-30 16:36 | Emergency (ER) | payer BC, SELFPAY ==
[2025-01-30] VITALS (34 sets, daily range): BP systolic 83–139; BP diastolic 44–90; PULSE 53–84; RESP 13–22; TEMP 36.7; O2SAT 88–100
--- OUTSIDE RECORDS SUMMARY | 2025-01-30 16:38 | XMS_ITS | Clinical Summary ---
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 Zen RODGERS et al. PANCHO. 2013;310(19): 6881-3090 (http://education.ShopText.[facility]/faq/YXG543) CHOL/HDLC RATIO 4.8 <5.0 (calc) [facility] NON HDL CHOLESTEROL 210(H) <130 mg/dL (calc) [facility] Comment: For patients with diabetes plus 1 major ASCVD risk factor, treating to a non-HDL-C goal of <100 mg/dL (LDL-C of <70 mg/dL) is considered a therapeutic option. Blood BLOOD SPECIMEN / Unknown 05/29/2024 11:59 AM CDT 05/29/2024 12:00 PM CDT Charles Jimenez MD CHEMISTRY Final Result [facility] [address] [place] [address], [facility] [address] [place] [address] * SCAN-COLONOSCOPY (05/20/2023 10:00 AM CDT) Narrative Procedure Note Maria GuadalupeBeto Cantu MD - 05/20/2023 9:16 AM CDT [facility] [address], [address], [place] [address] Patient Name: Morgan Rodriguez Gender: Male Exam Date: 05/20/2023 Visit Number: [id number] Age: 57 Years Date of : 1965 Attending MD: Beto Royal MD Medical Record#: [id number] Procedure: Colonoscopy Indications: Colorectal cancer screening Referring [...] of the colorectum is defined by the [place] [employer] (ACG) as an adenoma that is 1 cm or more in size,contains an appreciable villous component, or has high grade dysplasia(Zackery JH; Polyp Guideline: Diagnosis, Treatment, and Surveillance forPatients with Colorectal Polyps. Am J [id number];95(11):8975-3918). This polyp qualifies as such. Patients withadvanced adenomas are at increased risk for synchronous and metachronousadditional advanced adenomas. Appropriate follow-up is suggested. MICROSCOPIC A: Performed B: Performed C: Performed D: Performed E: Performed Electronically signed by: Guillermo Levi MD Interpreted at [facility], [address] [place] [address] Orders Instruction(s)/Education: Instruction/Education Timeframe Assessment Colon Cancer [...] Insurance [employer] [place] [employer] Care Teams Residential Leasing Agent Relationship Specialty [place] [address] [place] [address] PCP - General Family Practice 03/25/23
--- OUTSIDE RECORDS SUMMARY | 2025-01-30 16:38 | XMS_ITS | Clinical Summary ---
Author Organization [facility] Address [address] [place] [address] Care Team Providers Care Chinese Teacher Name Role Phone Priya Cameron APRN, CNP Primary Care Provide r Allergies No known active allergies Medications pramipexole (MIRAPEX) 0.125 MG tablet Take 0.375 mg by mouth At Bedtime 09/16/2020 Active methocarbamol (ROBAXIN) 500 MG tabletIndicatio ns:S/P lumbar fusion Take 1 tablet (500 mg) by mouth 3 times daily as needed for muscle spasms 40 tablet 1 03/13/2021 Active neomycin-polymy peng-hydrocortis one (CORTISPORIN) 3.5-28563-9 otic suspensionIndic ations:Infectiv e otitis externa, left [...] on file Legal Sex Male 12:29 PM RN BARIATRIC Gender Identity Not on file Sexual Orientation [...] (146 lb 4.8 oz) 03/13/2021 11:14 AM RN BARIATRIC Height 167.6 cm (5' 6) 03/13/2021 11:14 AM RN BARIATRIC Body Mass Index 23.61 03/13/2021 11:14 AM RN BARIATRIC Plan of Treatment Health Maintenance Due Date [...] this topic Medical Devices Implanted Type Area Slitter Scorer Device Identifier Shelf Expiration Date Model / Serial / Lot [place] Dbf With Delivery Tubes Implanted:Qty: 1 on 03/13/2021 by Jose Luis Coto MD at [facility] N/A: Spine Lumbar [employer] 07/12/2022 [id number] / [id number] / Pete Dbf Inject Implanted:Qty: 1 on 03/13/2021 by Jose Luis Coto MD at [facility] N/A: Spine Lumbar [employer] 01/30/2023 [id number] / [id number] / Interbody Cage, Pl, Short Size 7mm Implanted:Qty: 1 on 03/13/2021 by Jose Luis Coto MD at [facility] N/A: Spine Lumbar 01/15/2029 [id number] / / [id number] 7.5 X 40 Voyager Ats Screw Implanted:Qty: 2 on 03/13/2021 by Jose Luis Coto MD at [facility] N/A: Spine Lumbar [employer] [id number] / / 800 - [id number] 7.5 X 35 Voyager Ats Screw Implanted:Qty: 2 on 03/13/2021 by Jose Luis Coto MD at [facility] N/A: Spine Lumbar [employer] [id number] / / 800 - [id number] Voyager Set Screw Implanted:Qty: 4 on 03/13/2021 by Jose Luis Coto MD at [facility] N/A: Spine Lumbar [employer] [id number] / / 800 - [id number] 35mm Capped Joel Implanted:Qty: 1 on 03/13/2021 by Jose Luis Coto MD at [facility] N/A: Spine Lumbar [employer] [id number] / / 800 - [id number] Procedures Procedure Name Priority Date/Time Associated Diagnosis Comments GLUCOSE BY METER Routine 03/14/2021 1:48 AM RN BARIATRIC from Last 3 Months or Most Recently Relevant to Health Maintenance Results * (ABNORMAL) Glucose by meter (03/14/2021 1:48 AM RN BARIATRIC) GLUCOSE BY METER POCT 126(H) 70 - 99 mg/dL 03/14/2021 1:55 AM RN BARIATRIC [facility] Comment:Dr/RN Notified Blood BLOOD SPECIMEN / Unknown 03/14/2021 1:48 AM RN BARIATRIC 03/14/2021 1:55 AM RN BARIATRIC us Jose Luis Coto MD LAB - BEAKER POCT Fi nal Result [facility] [address] (1st floor, no room number) [place] [address], [facility] [phone] from Last 3 Months or Most Recently Relevant to Health Maintenance Insurance PLUS Advance Directives For more information, please contact: [phone] * Full Code (Latest Code Status on File) Date Activated Date Inactivated Comments 03/13/2021 7:29 PM 03/14/2021 7:13 PM All basic an d advanced life-sustaining interventions are performed as appropriate Question Answer Comments Code status determined by: Discussion with lillian nt/ legal decision maker Care Teams Chinese Teacher Relationship Specialty Start Date End Date Priya Cameron APRN [employer]ING [employer] [address] [address] PCP - General Internal Medicine 03/03/21
--- NOTE | 2025-01-30 17:04 | ED.ABDPAIN ---
HPI - Abdominal Pain General Time Seen by Provider: 17:04 Date Seen: 01/30/25 Chief Complaint: Abdominal Pain Stated Complaint: kidney stones Time Seen by Provider: 01/30/25 16:37 Source: patient and RN notes reviewed Mode of arrival: ambulatory Limitations: no limitations History of Present Illness HPI narrative: This 59-year-old male is returning with chills and pain complicating kidney stone outpatient management. States his pain is 8/10 despite taking [place] at 2:00 p.m. and Toradol at 4:30 p.m.. He states he is unable to eat or drink. He was here yesterday and was diagnosed with a kidney stone. His CT from yesterday showed obstructing left 3 mm stone at the UVJ with mild left hydronephrosis. He had additional bilateral nonobstructing renal stones present. Bladder wall thickening with adjacent stranding, can be correlated for UTI/cystitis. Patient's white blood count was 723[address] yesterday with a absolute neutrophil count mildly elevated at 9700. His electrolytes were normal, creatinine 1.4 which was at baseline in comparison to priors. Urinalysis yesterday was cloudy, 2+ protein, negative glucose, 1+ ketones, trace intact blood, negative nitrite, negative leukocyte esterase. Urine microscopy showed 0-2 reds, 0-2 whites, moderate squamous epithelial cells, moderate bacteria, few fine granular casts. His urine culture shows less than 50,000 colonies per mL of mixed Gram-positive peyman isolated, no further workup. He notes when he went home he took a pain pill, around 2:00 a.m. took a Toradol. Was finally able to fall asleep for couple hours but then woke up again, took more pain medicine. It fell asleep until about 1 to 2:00 p.m. today with significant symptoms again. Again tried the [place] and Toradol. He is not truly allergic to Flomax, it cause ejaculations issues when he was on it chronically but he could tolerate it for a kidney stone. He feels the pain has intensified forward the left flank area again, feels that back up in the kidney area, he wonders if he has dropped another kidney stone. It is also on the left side. He has not noted any fevers. He has had some nausea despite trying to take Zofran, no vomiting. His symptoms have been bad enough that he states he really has not had adequate oral intake in, does feel like he could use some IV fluids. MD elicited complaint: flank pain Related Data Home Medications ?Medication ?Instructions ?Recorded ?Confirmed pramipexole 0.125 mg tablet 0.25 - 0.375 mg PO QPM 07/12/24 01/29/25 rosuvastatin 40 mg tablet 40 mg PO QPM 07/12/24 07/12/24 Previous Rx's ?Medication ?Instructions ?Recorded hydrocodone 5 mg-acetaminophen 325 1 tab PO Q4-6H PRN pain #8 tabs 01/29/25 mg tablet Allergies Allergy/AdvReac Type Severity Reaction Status Date / Time tamsulosin Allergy Unknown Verified 07/12/24 05:49 Review of Systems Status of ROS Reports: 6 or more systems reviewed and unremarkable except as noted in History and below PFSH PFSH Social History Smoking Status: Never smoker Do you use any of these nicotine containing products: None How often do you have a drink containing alcohol: never How often do you have six or more drinks on one occasion: Never AUDIT-C Alcohol total score: 0 Non-prescribed substance use: denies use service: No Exam Const: Vital Signs, click to edit/add: Vital Signs - 24 hr 01/30/25 16:57 01/30/25 19:36 01/30/25 20:30 Temperature 98.1 F Pulse Rate 53 L 80 Pulse Rate [Pulse Oximeter] 75 Respiratory Rate 22 Blood Pressure Blood Pressure [Ri ght Upper Arm] 115/76 Pulse Oximetry 100 100 99 Oxygen Delivery Me thod Room Air 01/30/25 20:34 01/30/25 20:45 01/30/25 21:10 Temperature Pulse Rate 63 67 71 Pulse Rate [Pulse Oximeter] Respiratory Rate Blood Pressure 98/55 L Blood Pressure [Ri ght Upper Arm] Pulse Oximetry 100 100 100 Oxygen Delivery Me thod 01/30/25 21:15 01/30/25 21:30 01/30/25 21:31 Temperature Pulse Rate 61 66 62 Pulse Rate [Pulse Oximeter] Respiratory Rate Blood Pressure 104/61 Blood Pressure [Ri ght Upper Arm] Pulse Oximetry 100 97 97 Oxygen Delivery Me thod 01/30/25 21:45 01/30/25 22:00 01/30/25 22:01 Temperature Pulse Rate 61 62 63 Pulse Rate [Pulse Oximeter] Respiratory Rate Blood Pressure 83/44 L Blood Pressure [Ri ght Upper Arm] Pulse Oximetry 98 88 90 Oxygen Delivery Me thod 01/30/25 22:04 01/30/25 22:11 01/30/25 22:15 Temperature Pulse Rate 62 65 57 L Pulse Rate [Pulse Oximeter] Respiratory Rate Blood Pressure 86/70 L 91/48 L Blood Pressure [Ri ght Upper Arm] Pulse Oximetry 99 99 99 Oxygen Delivery Me thod 01/30/25 22:24 01/30/25 22:30 01/30/25 22:31 Temperature Pulse Rate 64 56 L Pulse Rate [Pulse Oximeter] Respiratory Rate Blood Pressure 112/53 L 119/66 Blood Pressure [Ri ght Upper Arm] Pulse Oximetry 100 100 Oxygen Delivery Me thod 01/30/25 22:42 01/30/25 22:45 01/30/25 22:52 Temperature Pulse Rate 62 53 L 62 Pulse Rate [Pulse Oximeter] Respiratory Rate Blood Pressure 113/51 L 113/50 L Blood Pressure [Ri ght Upper Arm] Pulse Oximetry 100 100 96 Oxygen Delivery Me thod 01/30/25 23:00 01/30/25 23:02 01/30/25 23:03 Temperature Pulse Rate 71 70 73 Pulse Rate [Pulse Oximeter] Respiratory Rate Blood Pressure 120/59 L Blood Pressure [Ri ght Upper Arm] Pulse Oximetry 100 100 100 Oxygen Delivery Me thod 01/30/25 23:12 01/30/25 23:15 01/30/25 23:21 Temperature Pulse Rate 57 L 61 53 L Pulse Rate [Pulse Oximeter] Respiratory Rate Blood Pressure 117/65 94/44 L Blood Pressure [Ri ght Upper Arm] Pulse Oximetry 100 97 96 Oxygen Delivery Me thod 01/30/25 23:25 Temperature Pulse Rate 53 L Pulse Rate [Pulse Oximeter] Respiratory Rate Blood Pressure 103/58 L Blood Pressure [Ri ght Upper Arm] Pulse Oximetry 100 Oxygen Delivery Me thod This 59-year-old male is alert and interactive but seems to be uncomfortable, lying on his left side curled up on the bed in exam room 3. Sclera clear, face atraumatic, able to speak in complete sentences. Lungs are clear, good air entry, wheeze or crackles. CV regular rate and rhythm, no murmur, normal S1-S2. Abdomen is soft, nontender, nondistended, no organomegaly, rebound or guarding. Documenting provider has reviewed patient's vital signs: yes Course Course ED Course: On his initial imaging patient has a 3 mm stone down at the UVJ. This panel mean should be able to go in. We are going to give him a dose of Flomax to see if this will help relax smooth muscle. Will place an IV, give him IV fluids, 4 of Zofran, 0.5 mg IV Dilaudid and 15 mg IV Toradol. We will recollect labs and urinalysis to see if there is any evidence of significant change such as infection or worsening renal dysfunction. We will also reimage to see if his concern about another stone dropping maybe correct. This will also help us decide if there is significant changes with the current kidney stone. Reevaluation(s) Time of Reevaluation #1: 18:24 Reevaluation #1: Have reviewed patient CT with him. I think we have the answer for the increased left flank pain that has come back. He likely has a forniceal rupture. His white count is down from yesterday, urinalysis actually looks even better than yesterday. This makes active infection on likely. We discussed coverage with antibiotics to protect against infection. Still need to see where his renal function is, those are pending. He does look a little better as far as pain control. Hopefully with the addition of the Flomax this will help alleviate some of the restriction and allow the stone to pass. This is the 4th stone he has had this year, the others basically past within a day. He actually found additional oxycodone at home, never did have to take it with his other stones. He has not established with Urology yet. He did have an appointment in the past but it was months out, when the appointment came to be, he had to cancel due to conflicts. Thus, did review with him since he is not established with Urology, I will not be able to talk to them. In my a literature search and medical search, uninfected forniceal rupture is usually managed conservatively with attempts to get the stone to pass. He hopefully will benefit from the Flomax. Time of Reevaluation #2: 19:10 Reevaluation #2: Patient's lactate is come back elevated at 3.9. Creatinine is up at 1.9. Dehydration could be contributing to this. Will give him a 2 L of normal saline, recheck lactate to make sure it is improved and not worsening. Will see how the patient is doing clinically, see how his pain is. Time of Reevaluation #3: 20:26 Reevaluation #3: Patient is moaning and groaning in pain. He is feeling more flank pain. Have ordered more dilaudid, unfortunately do not feel that I should be giving him more Toradol given his worsening renal function with creatinine of 1.9. Did order some IV Tylenol, do not think at this point is going to tolerate orals very well. He is getting his 2nd L of fluids. Do need to repeat his lactate. Unfortunately, I think is forniceal rupture is clinically complicating his pain. We are going to have to transfer to an institution where there is Urology, our hospitalist will not except here. We will call Jose. Additional Reevaluation(s): 2212: Nursing staff is notifying me that patient's blood pressure is 80 systolic. I wonder if he is becoming septic. We are initiating L of IV fluids. Will order vancomycin. Do need to talk to the application services manager at [facility]. She has gotten blood pressures of 86/44 and 86/68. He had gotten Rocephin earlier. 10 20 p.m.: Have talked to patient, he is still alert, conversive, his pain is back, he is feeling it in the left lower quadrant as well as the left flank area. His abdomen is soft, nontender, no rebound or guarding. His systolic blood pressure is now 91 systolic. We reviewed that I have concerns that he indeed is becoming infected. Have ordered vancomycin 1500 mg IV, he has another L of IV fluids started. Have also had order further dilaudid, did a p.r.n. of 0.2-0.5 mg q.1 hour. We have paged the application services manager from [facility]. He may ultimately need pressor support with norepinephrine, will watch him quite closely. Consultations Consultation #1: Spoke with Dr. Chapa from Nephrology as requested by the transfer services. He was unclear why we were talking to him, reviewed that we cannot talk to Urology is this patient is not established. I have not talked to the hospitalists and that is who I requested to talk to. We reviewed the case, he agrees that this patient needs transfer, he states this is not his expertise. Did ask 1 call to page out the hospitalist for me. 9:39 p.m.: Spoke with Dr. Orourke the hospitalist. We reviewed the case. Reviewed with her that I had not talked to Urology. Did review with her my reading on the forniceal rupture. At this time he would not appear infected, did order Rocephin earlier though. She does accept him. It may be up to an 8 hour delay. I will make sure he has some maintenance fluids, write for p.r.n. pain meds. 10:52 p.m.: Have spoken with Dr. Bruno from [facility] ICU. We discussed my concerns with this patient. His blood pressure has rebounded with fluids but there is concern as soon as the fluids are stopped that he will be hypotensive again. Was hypotensive with significant pain which makes me concerned for underlying infection with him. Reviewed that he has received Rocephin earlier in then added vancomycin in. She requests nothing further for antibiotics at this time. She does agree to accept him to the ICU given the uncertainty of his situation. She will contact or consult Urology when he is there. Time: 21:17 Vital Signs Vital signs: Initial Vital Signs Temperature 98.1 F 01/30/25 16:57 Temperature Source Temporal Artery Scan 01/30/25 16:57 Pulse Rate 75 01/30/25 16:57 Respiratory Rate 22 01/30/25 16:57 Blood Pressure 115/76 01/30/25 16:57 Blood Pressure Mean 89 01/30/25 16:57 Pulse Oximetry 100 01/30/25 16:57 Oxygen Delivery Method Room Air 01/30/25 16:57 Vital Signs Temperature 98.1 F 01/30/25 16:57 Pulse Rate 75 01/30/25 16:57 Respiratory Rate 22 01/30/25 16:57 Blood Pressure 115/76 01/30/25 16:57 Pulse Oximetry 100 01/30/25 16:57 Oxygen Delivery Method Room Air 01/30/25 16:57 Temperature 98.1 F 01/30/25 16:57 Pulse Rate 53 L 01/30/25 23:25 Respiratory Rate 22 01/30/25 16:57 Blood Pressure 103/58 L 01/30/25 23:25 Pulse Oximetry 100 01/30/25 23:25 Oxygen Delivery Method Room Air 01/30/25 16:57 Medications Administered Medications: Generic Name Dose Route Start Last Admin Trade Name Theresa PRN Reason Stop Dose Admin Hydromorphone HCl 0.2 - 0.5 mg 01/30/25 22:16 01/30/25 22:26 Hydromorphone 0.5 Mg/0.5 Ml Inj IVP 0.5 mg Q1H PRN Administration Pain Vancomycin/PEG/NADA/Lysine/Water 1.5 gm in 300 mls @ 200 mls/hr 01/30/25 22:13 01/30/25 22:58 Vancomycin 1.5 Gm/300 Ml IVPB 01/30/25 23:42 200 mls/hr ONCE ONE Administration Protocol Discontinued Medications Generic Name Dose Route Start Last Admin Trade Name Matthiasq PRN Reason Stop Dose Admin Hydromorphone HCl 0.5 mg 01/30/25 17:14 01/30/25 18:06 Hydromorphone 0.5 Mg/0.5 Ml Inj IVP 01/30/25 17:15 0.5 mg ONCE ONE Administration Hydromorphone HCl 0.5 mg 01/30/25 20:20 01/30/25 20:25 Hydromorphone 0.5 Mg/0.5 Ml Inj IVP 01/30/25 20:21 0.5 mg ONCE ONE Administration Sodium Chloride 1,000 mls @ 500 mls/hr 01/30/25 17:16 01/30/25 20:00 0.9 % Sodium Chloride 1000 Ml IV 01/30/25 19:15 Infused .Q2H ELLE Infusion Sodium Chloride 1,000 mls @ 1,000 mls/hr 01/30/25 19:10 01/30/25 20:45 0.9 % Sodium Chloride 1000 Ml IV 01/30/25 20:09 Infused .Q1H [facility] Infusion Ceftriaxone Sodium 1 gm/ 100 mls @ 200 mls/hr 01/30/25 20:22 01/30/25 22:13 Sodium Chloride IVPB 01/30/25 20:23 Infused ONCE ONE Infusion Acetaminophen 1,000 mg in 100 mls @ 400 mls/hr 01/30/25 20:23 01/30/25 21:00 Acetaminophen Inj IVPB 01/30/25 20:37 Infused ONCE ONE Infusion Sodium Chloride 1,000 mls @ 1,000 mls/hr 01/30/25 22:17 01/30/25 23:01 0.9 % Sodium Chloride 1000 Ml IV 01/30/25 23:16 Infused .Q1H [facility] Infusion Ketorolac Tromethamine 15 mg 01/30/25 17:14 01/30/25 17:56 Ketorolac 15 Mg/Ml Inj IVP 01/30/25 17:15 15 mg ONCE ONE Administration Ondansetron HCl 4 mg 01/30/25 17:14 01/30/25 17:55 Ondansetron 2 Mg/Ml Inj IVP 01/30/25 17:15 4 mg ONCE ONE Administration Tamsulosin HCl 0.4 mg 01/30/25 17:14 01/30/25 18:13 Tamsulosin Hcl 0.4 Mg Capsule PO 01/30/25 17:15 0.4 mg ONCE ONE Administration MDM - Abdominal Pain Lab Data Attestation: I reviewed the patient's lab results. Labs: Lab Results 01/30/25 01/30/25 01/30/25 Range/Units 17:50 17:56 21:00 WBC 10.16 (4.50-11.00) K/uL RBC 5.06 (4.30-5.90) m/uL Hgb 15.7 (13.5-17.5) gm/dL Hct 47.0 (37.0-53.0) % MCV 93 (80-100) fL MCH 31 (26-34) pg MCHC 33 (32-36) gm/dL RDW Coeff of Disha 12.5 (11.5-15.5) % Plt Count 143 (140-440) K/uL Neut % (Auto) 79.3 H (42.0-72.0) % Lymph % (Auto) 10.1 L (20-44) % Kimble % (Auto) 9.4 (0.0-11.0) % Eos % (Auto) 0.7 (0.0-7.0) % Baso % (Auto) 0.3 (0.0-3.0) % Neut # (Auto) 8.10 H (1.7-7.0) K/uL Lymph # (Auto) 1.00 (0.90-2.90) K/uL Kimble # (Auto) 1.00 H (0.00-0.90) K/UL Eos # (Auto) 0.07 (0.00-0.50) K/uL Baso # (Auto) 0.03 (0.00-0.30) K/uL Abs Immat Gran (auto) 0.02 (0.00-0.30) K/uL Imm/Tot Granulo (auto) 0.2 % Sodium 134 L (135-149) mmol/L Potassium 3.8 (3.6-5.1) mmol/L Chloride 98 (96-114) mmol/L Carbon Dioxide 22 (20-32) mmol/L Anion Gap 14 (7-15) mEq/L BUN 30 (7-30) mg/dL Creatinine 1.9 H (0.5-1.5) mg/dL Estimated GFR 40 ml/min Glucose 126 H (60-115) mg/dL Lactate 3.9 H 2.2 H (0.5-1.9) mmol/L Calcium 8.9 (8.4-10.6) mg/dL Urine Color Yellow (Yellow) Urine Appearance Clear (Clear) Urine pH 5.5 (5.0-8.5) Ur Specific [place] 1.025 (1.000-1.030) Urine Protein 1+ A (Negative) Urine Glucose (UA) Negative (Negative) Urine Ketones Trace A (Negative) Urine Blood Trace-lysed A (Negative) Urine Nitrite Negative (Negative) Urine Bilirubin Negative (Negative) Urine Urobilinogen 0.2 (0.2-1.0) Ur Leukocyte Esterase Negative (Negative) Urine RBC 0-2 (0-2) Urine WBC 0-2 (0-5) Ur Squamous Epith Cells None (None-Few) Urine Bacteria None (None) Imaging Data CT scan - abdomen: Attestation: I have reviewed the pertinent imaging results. Radiologist's impression: Patient: MORGAN TEJADA Facility:?[facility] Patient ID:?[id number] Site Patient ID:?[id number]. Site :?[id number] Study:?CT-Abdomen/Pelvis W/O-01/30/2025 5:29:33 PM Ordering Physician:Jasvir Keane Final Report: INDICATION: Worsening pain with known kidney stone TECHNIQUE: CT abdomen and pelvis without contrast. COMPARISON: CT abdomen and pelvis without contrast 01/29/2025. FINDINGS: Lower chest: Unremarkable. Liver: Unremarkable. Gallbladder and bile ducts: No stones or inflammation. No biliary dilatation. Pancreas: Unremarkable. Spleen: Normal in size. No masses. Adrenal glands: Normal in size. No nodules. Kidneys: There is similar mild left hydroureteronephrosis secondary to an unchanged 3 millimeter calculus near the left UVJ. There is increased perinephric edema. Additional punctate nonobstructing bilateral renal calculi are present. GI tract: No evidence of bowel obstruction or inflammation. Vasculature: Abdominal aorta is normal in caliber. Mild atherosclerotic calcifications. Lymph nodes: No lymphadenopathy. Peritoneum/Abdominal Wall: No free air. Small amount of left perinephric free fluid as above. Pelvis: Partially distended urinary bladder with mild nonspecific wall thickening. Prostatomegaly with central calcifications. Bones: No acute or suspicious osseous abnormality. Postsurgical changes at L5-S1. Multilevel degenerative changes of the spine. IMPRESSION: 1. Similar mild left hydroureteronephrosis secondary to unchanged calculus in the distal left ureter near the UVJ. No new ureteral calculi. 2. Interval increase in adjacent perinephric stranding and free fluid, which could reflect forniceal rupture. Please note that all CT scans at this facility use dose modulation, iterative reconstruction, and/or weight-based dosing when appropriate to reduce radiation dose to as low as reasonably achievable. Dictated by Monica Pulido MD @ 01/30/2025 5:51:21 PM (Electronic Signature) Discharge Plan Discharge Clinical Impression: Rupture of urinary tract, Kidney stone on left side, Colic, ureteral Patient Disposition: Xfer [facility] Discharge Location: [facility] Prescriptions: No Action pramipexole 0.125 mg tablet 0.25 - 0.375 mg PO QPM rosuvastatin 40 mg tablet 40 mg PO QPM hydrocodone-acetaminophen 5-325 mg tablet 1 tab PO Q4-6H PRN (Reason: pain) Qty: 8 0RF Stand Alone Forms: [facility]
--- NOTE | 2025-01-30 17:15 | CRLHL7_ITS ---
For Patients: As a result of the Century Cures Act, medical imaging exams and procedure reports are released immediately into your electronic medical record. You may view this report before your referring provider. If you have questions, please contact your health care provider. INDICATION: Worsening pain with known kidney stone TECHNIQUE: CT abdomen and pelvis without contrast. COMPARISON: CT abdomen and pelvis without contrast 01/29/2025. FINDINGS: Lower chest: Unremarkable. Liver: Unremarkable. Gallbladder and bile ducts: No stones or inflammation. No biliary dilatation. Pancreas: Unremarkable. Spleen: Normal in size. No masses. Adrenal glands: Normal in size. No nodules. Kidneys: There is similar mild left hydroureteronephrosis secondary to an unchanged 3 millimeter calculus near the left UVJ. There is increased perinephric edema. Additional punctate nonobstructing bilateral renal calculi are present. GI tract: No evidence of bowel obstruction or inflammation. Vasculature: Abdominal aorta is normal in caliber. Mild atherosclerotic calcifications. Lymph nodes: No lymphadenopathy. Peritoneum/Abdominal Wall: No free air. Small amount of left perinephric free fluid as above. Pelvis: Partially distended urinary bladder with mild nonspecific wall thickening. Prostatomegaly with central calcifications. Bones: No acute or suspicious osseous abnormality. Postsurgical changes at L5-S1. Multilevel degenerative changes of the spine. IMPRESSION: 1. Similar mild left hydroureteronephrosis secondary to unchanged calculus in the distal left ureter near the UVJ. No new ureteral calculi. 2. Interval increase in adjacent perinephric stranding and free fluid, which could reflect forniceal rupture. Please note that all CT scans at this facility use dose modulation, iterative reconstruction, and/or weight-based dosing when appropriate to reduce radiation dose to as low as reasonably achievable. Dictated by Monica Pulido MD @ 01/30/2025 5:51:21 PM (Electronically Signed)
[2025-01-30] MEDS: ONDANSETRON 2 MG/ML inj 4 MG IVP (17:55)
[2025-01-30 18:03] LABS: Lactate* 3.9 mmol/L (0.5-1.9)
[2025-01-30 18:07] LABS: Hematocrit* 47.0 % (37.0-53.0); Hemoglobin* 15.7 gm/dL (13.5-17.5); Immature Granulocytes Abs Auto 0.02 K/uL (0.00-0.30); Immature Granulocytes Pct Auto 0.2 %; Mean Corpuscular HGB Conc 33 gm/dL (32-36); Mean Corpuscular Hemoglobin 31 pg (26-34); Mean Corpuscular Volume 93 fL (80-100); RDW Coefficient of Variation % 12.5 % (11.5-15.5); Red Blood Count* 5.06 m/uL (4.30-5.90); White Blood Count* 10.16 K/uL (4.50-11.00)
[2025-01-30 18:08] LABS: Appearance Urine Clear (Clear)
[2025-01-30 18:10] LABS: Lymphocytes Absolute Auto 1.00 K/uL (0.90-2.90); Slide Review Reflex No
[2025-01-30] MEDS: TAMSULOSIN HCL 0.4 MG CAPSULE PO (18:13)
[2025-01-30 18:20] LABS: Chloride* 98 mmol/L (96-114); Potassium* 3.8 mmol/L (3.6-5.1); Sodium* 134 mmol/L (135-149)
[2025-01-30 18:23] LABS: Anion Gap 14 mEq/L (7-15); Blood Urea Nitrogen* 30 mg/dL (7-30); Calcium* 8.9 mg/dL (8.4-10.6); Carbon Dioxide* 22 mmol/L (20-32); Creatinine* 1.9 mg/dL (0.5-1.5); Estimated Glomerular Filt Rate 40 ml/min; Glucose* 126 mg/dL (60-115)
[2025-01-30] MEDS: ACETAMINOPHEN INJ 1,000 MG/100 ML VIAL 400 MG IVPB (20:45)
[2025-01-30] MEDS: cefTRIAXone 1 GM in 0.9 % SODIUM CHLORIDE Mini-bag 100 ML IVPB (21:05)
[2025-01-30 21:25] LABS: Lactate* 2.2 mmol/L (0.5-1.9)
[2025-01-30] MEDS: VANCOMYCIN 1.5 GM/300 ML 1.5 GM/300 ML PIGGYBACK IVPB (22:58)
== END 2025-01-31 00:02 | disposition short-term general hospital (02) ==
PROVIDERS: Emergency Provider Family Medicine
DX: N28.89 Other specified disorders of kidney and ureter (principal); N13.30 Unspecified hydronephrosis; N20.1 Calculus of ureter; I95.9 Hypotension, unspecified; N20.0 Calculus of kidney; Z87.442 Personal history of urinary calculi
CPT/HCPCS: 36415; 74176; 80048; 81001; 83605; 85025; 87040; 94761; 96361; 96365; 96375; 96376; 99285; A9270; J0131; J0696; J1171; J1885; J2405; J3375; J7030

== ENCOUNTER 2025-01-30 23:54 | Outpatient (CLI) | payer BC, SELFPAY | END 2025-01-30 23:55 | disposition home or self-care (01) | LOC: AMB 02-03 22:56 | PROVIDERS: Visit Provider Emergency Medicine | DX: N20.0 Calculus of kidney (principal) | CPT/HCPCS: A0425; A0427 ==